=== PATIENT | female | born 1980 | race Caucasian/White ===

== ENCOUNTER 2020-03-29 13:52 | Outpatient (CLI) | payer OTHER, SELFPAY ==
[2020-03-29 15:11] LABS: Alanine Aminotransferase 34 U/L (4-35); Albumin Level 4.2 g/dL (3.5-5.1); Alkaline Phosphatase 66 U/L (38-126); Anion Gap 10 mmol/L (8-16); Aspartate Amino Transferase 44 U/L (14-36); Bilirubin,Total 0.5 mg/dL (0.2-1.3); Blood Urea Nitrogen 10 mg/dL (7-17); Calcium 9.4 mg/dL (8.4-10.2); Carbon Dioxide 26 mmol/L (22-30); Chloride 103 mmol/L (98-107); Cholesterol 194 mg/dL (0-200); Estimated Glomerular Filt Rate > 60; Glucose 85 mg/dL (65-105); HDL Direct 61 mg/dL; Potassium 3.9 mmol/L (3.4-5.0); Sodium 139 mmol/L (137-145); Triglycerides 137 mg/dL (<150)
[2020-03-29 15:22] LABS: LDL Cholesterol Direct 141 mg/dL
== END 2020-03-29 13:53 | disposition home or self-care (01) ==
PROVIDERS: PCP Internal Medicine; Visit Provider Student in an Organized Health Care Education/Training Program
DX: Z00.00 Encounter for general adult medical examination without abnormal findings (principal)
CPT/HCPCS: 36415; 80053; 80061

== ENCOUNTER 2020-05-18 10:57 | Outpatient (CLI) | payer OTHER, SELFPAY ==
[2020-05-18 11:27] LABS: CRP 0.8 mg/dL (<1.0)
[2020-05-18 13:25] LABS: Erythrocyte Sedimentation Rate 17 mm/hr (0-20)
[2020-05-21 09:01] LABS: Tissue Transglutaminase IgG Ab 3 U/mL (<6)
[2020-05-23 18:05] LABS: Tissue Transglutaminase IgA Ab 1 U/mL (<4)
== END 2020-05-18 10:58 | disposition home or self-care (01) ==
LOC: ANHLAB 10:59
PROVIDERS: PCP Internal Medicine; Visit Provider Internal Medicine Gastroenterology
DX: R19.7 Diarrhea, unspecified (principal)
CPT/HCPCS: 36415; 83516; 85652; 86140

== ENCOUNTER → 2020-06-20 00:27 | Outpatient (CLI) | payer OTHER, SELFPAY ==
[2020-06-20 21:18] LABS: SARS-CoV-2 RNA PCR Negative
== END ==
PROVIDERS: PCP Internal Medicine; Visit Provider Internal Medicine Gastroenterology
DX: Z01.812 Encounter for preprocedural laboratory examination (principal); Z20.822 Contact with and (suspected) exposure to COVID-19
CPT/HCPCS: C9803; U0003; U0005

== ENCOUNTER 2020-06-23 00:11 | Day surgery (SDC) | payer OTHER, SELFPAY ==
[2020-06-01 10:22] VITALS: BMI 26.7
[2020-06-23 06:18] VITALS: BP 141/92; PULSE 103; RESP 16; TEMP 36.1; O2SAT 100
[2020-06-23] MEDS: LACTATED RINGERS 1,000 ML 150 ML IV CONT (06:30)
--- NOTE | 2020-06-23 07:01 | WPDANESEPPF ---
Anes - Initial Pre Proc Eval Procedure: Operation Date: 06/23/20 07:30 Proposed Procedures p Colonoscopy - Dar Allan MD Date/Time: 06/23/20 07:01 Surgeon: Dar Allan MD Pre Op Diagnosis: Diarrhea Patient Data Age: 40 Gender: F Height: 5 ft 5 in Weight: 68.6 kg Last Vital Signs Temp 36.1 C L 06/23/20 06:18 Pulse 103 H 06/23/20 06:18 Resp 16 06/23/20 06:18 BP 141/92 H 06/23/20 06:18 Pulse Ox 100 06/23/20 06:18 Allergies Allergy/AdvReac Type Severity Reaction Status Date / Time Contrast Media Allergy Unknown NECK/FACIAL Uncoded 06/23/20 06:16 SWELLING WITH EYE SWELLING CLOSED Home Medications Medication Instructions Recorded Confirmed Type lisinopril 10 mg tablet 10 mg PO DAILY 05/18/20 06/23/20 History loperamide 2 mg capsule 2 mg PO Q4H PRN 05/18/20 06/23/20 History norethindrone 1 mg-ethin. 1 cap PO DAILY 05/18/20 06/23/20 History estradiol 20 mcg (24)-iron 75 mg (4) capsule sodium,potassium,mag sulfates 17.5 See Rx Instructions PO .COMPLEX 05/18/20 06/23/20 Rx gram-3.13 gram-1.6 gram oral soln #354 ml cholestyramine (with sugar) 4 gram 4 g PO BID #378 g 06/08/20 06/23/20 Rx oral powder Patient hx anesthesia problems: none Family hx anesthesia problems: none PMFSH Past Medical History Medical History (Updated 06/23/20 @ 07:01 by Alexis Shaffer MD) Bloating Diarrhea HTN (hypertension) Rectal urgency Surgical History Surgical History H/O tubal ligation History of esophagogastroduodenoscopy (EGD) Family History Family History Mother Hypertension Social History Social History Smoking packs per day: 0.5 Smoking cigarettes per day: 10.0 Years smoked: 9 Smoking pack-years: 4.50 Smoking status: Former smoker Tobacco type: cigarettes Second hand tobacco smoke exposure: No Smoking end date: 05/21/11 Alcohol intake: current Alcohol use details: 2 Substance use: never Substance use type: does not use Living arrangements: with family Gender identity (if verbalized by the patient): Female Spiritual care concerns: No Anes - Eval Final PreProcedure Day of Procedure 06/23/20 07:01 Patient weight: normal Heart: regular rate and rhythm Lungs: clear to auscultation Airway: Mallampati scale class II Neurological: alert and oriented Last oral intake: >/= 8 hours ASA classification: II Emergent: no Anesthetic plan: proceed Anesthesia type and monitoring: general GIVS and standard monitoring Informed Consent: The patient's anesthetic plan and its attendant risks and benefits were discussed with the patient/family/POA. Questions were solicited and answers provided to the satisfaction of the patient/family/POA.
--- NOTE | 2020-06-23 07:54 | PM.HPGS ---
History of Present Illness History of Present Illness Consent: Risks, benefits, and alternatives have been discussed and questions answered. Patient agrees to proceed with procedure. Chief complaint: Diarrhea Narrative: Kerry Medel is a 40 year old female with diarrhea but much better after I started her on questran, serology for celiac was negative Review of Systems Constitutional: Constitutional: Denies headache(s) and Denies weakness Eyes: Eyes: Denies blurry vision ENT: Reports Normal hearing present, Denies headache(s) and Denies neck pain Cardiovascular: Cardiovascular: Denies chest pain and Denies dyspnea Respiratory: Respiratory: Denies dyspnea Gastrointestinal: Gastrointestinal: Reports no additional gastrointestinal complaints Genitourinary: Genitourinary: Denies dysuria Musculoskeletal: Musculoskeletal: Denies neck pain Integumentary/Breasts: Skin/Breast: Denies dry skin Neurologic: Reports Normal hearing present, Denies headache(s) and Denies weakness Psychiatric: Psychiatric: Denies anxiety Endocrine: Endocrine: Denies change in body appearance Hematologic/Lymphatic: Hematologic/Lymphatic: Denies easy bleeding Allergic/Immunologic: Allergic/Immunologic: Denies urticaria PMF Past Medical History Medical History (Updated 06/23/20 @ 07:01 by Alexis Shaffer MD) Bloating Diarrhea HTN (hypertension) Rectal urgency Surgical History Surgical History H/O tubal ligation History of esophagogastroduodenoscopy (EGD) Family History Family History Mother Hypertension Social History Social History Smoking packs per day: 0.5 Smoking cigarettes per day: 10.0 Years smoked: 9 Smoking pack-years: 4.50 Smoking status: Former smoker Tobacco type: cigarettes Second hand tobacco smoke exposure: No Smoking end date: 05/21/11 Alcohol intake: current Alcohol use details: 2 Substance use: never Substance use type: does not use Living arrangements: with family Gender identity (if verbalized by the patient): Female Spiritual care concerns: No Meds Home Medications and Allergies Home Medications Medication Instructions Recorded Confirmed Type lisinopril 10 mg tablet 10 mg PO DAILY 05/18/20 06/23/20 History loperamide 2 mg capsule 2 mg PO Q4H PRN 05/18/20 06/23/20 History norethindrone 1 mg-ethin. 1 cap PO DAILY 05/18/20 06/23/20 History estradiol 20 mcg (24)-iron 75 mg (4) capsule sodium,potassium,mag sulfates 17.5 See Rx Instructions PO .COMPLEX 05/18/20 06/23/20 Rx gram-3.13 gram-1.6 gram oral soln #354 ml cholestyramine (with sugar) 4 gram 4 g PO BID #378 g 06/08/20 06/23/20 Rx oral powder Allergies Allergy/AdvReac Type Severity Reaction Status Date / Time Contrast Media Allergy Unknown NECK/FACIAL Uncoded 06/23/20 06:16 SWELLING WITH EYE SWELLING CLOSED Vital Signs Vital Signs - 24 hr 06/23/20 06:18 Temperature 97.0 F L Pulse Rate 103 H Respiratory Rate 16 Blood Pressure 141/92 H Pulse Oximetry 100 Exam Const: General: comfortable and no acute distress HENMT: General nose exam: Normal nares present Eyes: General: appearance normal, both eyes and all related structures Neck: Neck: no JVD Resp: Auscultation: clear to auscultation bilaterally Cardio: Rate: regular rate Rhythm: regular rhythm GI: Inspection: non-distended GI Palp: Yes Soft to palpation Skin: General skin exam: normal color Neuro: General: gait normal Speech: normal speech Extrem: General: normal to inspection Psych: Mental Status: mental status grossly normal Assessment and Plan Assessment and plan (1) Diarrhea: Code(s): R19.7 - Diarrhea, unspecified Status: Acute Assessment and Plan: colonoscopy with random bx
[2020-06-23 08:17] VITALS: BP 112/78; PULSE 91; RESP 18; O2SAT 100
[2020-06-23 08:28] VITALS: BP 117/78; PULSE 85; RESP 20; O2SAT 100
[2020-06-23 08:38] VITALS: BP 121/82; PULSE 82; RESP 18; O2SAT 100
== END 2020-06-23 08:49 | disposition home or self-care (01) ==
PROVIDERS: PCP Internal Medicine; Visit Provider Internal Medicine Gastroenterology
PROC: 0DJD8ZZ Inspection of Lower Intestinal Tract, Via Natural or Artificial Opening Endoscopic (ICD-10-PCS; CPT 45378; principal; 2020-06-23 07:30)
DX: R19.7 Diarrhea, unspecified (principal); K63.5 Polyp of colon; R15.2 Fecal urgency; R14.0 Abdominal distension (gaseous); K57.30 Diverticulosis of large intestine without perforation or abscess without bleeding; K64.8 Other hemorrhoids; I10 Essential (primary) hypertension; Z87.891 Personal history of nicotine dependence
CPT/HCPCS: 45385; 45380; 88305; J2704; J7120

== ENCOUNTER 2020-08-22 06:50 | Outpatient (CLI) | payer OTHER, SELFPAY ==
[2020-08-22 07:35] LABS: Hematocrit 38.7 % (37.0-47.0); Hemoglobin 12.8 g/dL (12.0-15.0); Mean Corpuscular HGB Conc 33.1 g/dl (32-36); Mean Corpuscular Hemoglobin 32.1 pg (26-34); Mean Platelet Volume 9.3 fl (7.4-10.4); Platelet Count Result 292 k/mm3 (150-375); Red Blood Count 3.99 M/mm3 (4.2-5.4); Red Cell Distribution Width 13.2 % (11.5-14.5); White Blood Count 5.5 K/mm3 (4.5-10.0)
[2020-08-22 07:46] LABS: Alanine Aminotransferase 29 U/L (4-35); Albumin Level 4.3 g/dL (3.5-5.1); Alkaline Phosphatase 65 U/L (38-126); Anion Gap 10 mmol/L (8-16); Aspartate Amino Transferase 39 U/L (14-36); Bilirubin,Total 0.4 mg/dL (0.2-1.3); Blood Urea Nitrogen 11 mg/dL (7-17); Calcium 9.1 mg/dL (8.4-10.2); Carbon Dioxide 28 mmol/L (22-30); Chloride 105 mmol/L (98-107); Estimated Glomerular Filt Rate > 60; Glucose 87 mg/dL (65-105); Potassium 3.9 mmol/L (3.4-5.0); Sodium 143 mmol/L (137-145)
[2020-08-22 08:15] LABS: Thyroid Stimulating Hormone 0.874 uIU/mL (0.465-4.680)
[2020-08-22 08:50] LABS: Folic Acid 9.1 ng/mL (2.76->20)
[2020-08-22 09:26] LABS: Vitamin D 25 Hydroxy 30.2 ng/mL
[2020-08-25 09:17] LABS: Vitamin B6 14.5 ng/mL (2.1-21.7)
[2020-08-25 11:44] LABS: Vitamin B1 13 nmol/L (8-30)
== END 2020-08-22 06:51 | disposition home or self-care (01) ==
PROVIDERS: PCP Internal Medicine; Visit Provider Physician Assistant Surgical
DX: G62.9 Polyneuropathy, unspecified (principal)
CPT/HCPCS: 36415; 80053; 82306; 82607; 82746; 84207; 84425; 84443; 85027

== ENCOUNTER 2020-09-12 07:06 | Outpatient (CLI) | payer OTHER, SELFPAY ==
[2020-09-12 07:27] LABS: Basophils Percent Auto 0.5 % (0.2-1.2); Eosinophils Absolute Auto 0.2 K/mm3 (0-0.3); Hematocrit 40.9 % (37.0-47.0); Hemoglobin 13.4 g/dL (12.0-15.0); Immature Granulocyte Absolute 0.04 K/mm3 (0.00-0.031); Immature Granulocyte Percent A 0.6 % (0-0.5); Lymphocytes Absolute Auto 1.99 K/mm3 (0.9-3.2); Lymphocytes Percent Auto 30.1 % (18.3-44.2); Mean Corpuscular HGB Conc 32.8 g/dl (32-36); Mean Corpuscular Hemoglobin 31.5 pg (26-34); Mean Platelet Volume 9.5 fl (7.4-10.4); Monocytes Absolute Auto 0.5 K/mm3 (0.1-0.6); Neutrophils Absolute Auto 3.9 K/mm3 (1.3-6.7); Neutrophils Percent Auto 58.8 % (45.5-73.1); Platelet Count Result 266 k/mm3 (150-375); Red Blood Count 4.26 M/mm3 (4.2-5.4); Red Cell Distribution Width 12.8 % (11.5-14.5); White Blood Count 6.6 K/mm3 (4.5-10.0)
== END 2020-09-12 07:07 | disposition home or self-care (01) ==
PROVIDERS: PCP Internal Medicine; Visit Provider Physician Assistant Surgical
DX: G62.9 Polyneuropathy, unspecified (principal)
CPT/HCPCS: 36415; 82306; 82607; 85025

== ENCOUNTER 2021-01-18 08:20 | Outpatient (CLI) | payer OTHER, SELFPAY ==
--- NOTE | 2021-01-18 08:30 | ECG_ITS ---
Measurements Intervals [place] Rate: 70 P: 61 OK: 145 QRS: -14 QRSD: 74 T: 0 QT: 380 QTc: 410 Interpretive Statements SINUS RHYTHM WITH SINUS ARRHYTHMIA POSSIBLE LEFT ATRIAL ENLARGEMENT LOW QRS VOLTAGE IN PRECORDIAL LEADS BORDERLINE T WAVE ABNORMALITY- INFERIOR LEADS BASELINE ARTIFACT- I, II, III, AVR, AVL, AVF BORDERLINE ECG Electronically Signed On 01-18-2021 9:06:28 CDT by Emir Kelsey D.O.
== END 2021-01-18 08:21 | disposition home or self-care (01) ==
LOC: ANHSURGERY 08:24
PROVIDERS: PCP Internal Medicine; Visit Provider Orthopaedic Surgery
DX: Z01.818 Encounter for other preprocedural examination (principal); I10 Essential (primary) hypertension; R94.31 Abnormal electrocardiogram [ECG] [EKG]
CPT/HCPCS: 93005

== ENCOUNTER 2021-01-25 00:12 | Day surgery (SDC) | payer OTHER, SELFPAY ==
[2021-01-16 14:23] VITALS: BMI 25.0
--- NOTE | 2021-01-24 12:15 | P.PNAN_ITS ---
Anes - Initial Pre Proc Eval Procedure: Operation Date: 01/25/21 09:15 Proposed Procedures p Right Tarsal Tunnel Release - Torrey Bazan MD Date/Time: 01/24/21 12:15 Surgeon: Torrey Bazan MD Pre Op Diagnosis: Right Tarsal Tunnel Syndrome Patient Data Age: 40 Gender: F Height: 1.65 m Weight: 68.2 kg Allergies Allergy/AdvReac Type Severity Reaction Status Date / Time Contrast Media Allergy Intermediate NECK/FACIAL Uncoded 01/25/21 07:25 SWELLING WITH EYE SWELLING CLOSED Home Medications Medication Instructions Recorded Confirmed Type lisinopril 10 mg tablet 10 mg PO DAILY 05/18/20 01/25/21 History norethindrone 1 mg-ethin. 1 cap PO DAILY 05/18/20 01/25/21 History estradiol 20 mcg (24)-iron 75 mg (4) capsule cholestyramine (with sugar) 4 gram 4 g PO BID #378 g 09/28/20 01/25/21 Rx oral powder Patient hx anesthesia problems: none Family hx anesthesia problems: none PMFSH Past Medical History Medical History (Updated 01/24/21 @ 16:53 by Torrey Bazan MD) Bilateral ankle pain Bloating Diarrhea HTN (hypertension) Interstitial cystitis Rectal urgency Tarsal tunnel syndrome of right side Tarsal tunnel syndrome, left lower limb Surgical History Surgical History H/O tubal ligation History of esophagogastroduodenoscopy (EGD) Family History Family History Mother Hypertension Social History Social History Smoking packs per day: 0.5 Smoking cigarettes per day: 10.0 Years smoked: 9 Smoking pack-years: 4.50 Smoking status: Former smoker Tobacco type: cigarettes Second hand tobacco smoke exposure: No Smoking end date: 01/16/10 Alcohol intake: current Alcohol use details: 2 Substance use: never Substance use type: does not use Living arrangements: with family Gender identity (if verbalized by the patient): Female Sexual Orientation (if Verbalized by the Patient): Straight or Heterosexual Spiritual care concerns: No Anes - Eval Final PreProcedure Day of Procedure 01/24/21 12:15 Patient weight: normal Heart: regular rate and rhythm Lungs: clear to auscultation and normal air movement Airway: Mallampati scale class II Neurological: alert and oriented Last oral intake: >/= 8 hours ASA classification: II Emergent: no Anesthetic plan: proceed Anesthesia type and monitoring: general GIVS and LMA Informed Consent: The patient's anesthetic plan and its attendant risks and benefits were discussed with the patient/family/POA. Questions were solicited an d answers provided to the satisfaction of the patient/family/POA.
--- NOTE | 2021-01-24 16:50 | PM.IMHP ---
H&P: HPI History of Present Illness Date/Time: 01/24/21 16:50 Chief Complaint: Right foot and ankle pain, numbness and tingling Narrative: chief complaint bilateral foot pain, burning and tingling. right side worse than the left. History, physical exam and radiographs reviewed with the patient. Previous EMG nerve conduction study reviewed which shows severe tarsal tunnel tibial nerve compression bilaterally. Discussed the condition, nature, etiology and course of natural history with the patient. Treatment options including surgical and nonoperative treatment were reviewed. Risks and benefits of each as well as alternatives reviewed. The patient's questions were answered. Conservative treatment ice, compression and elevation Not given any relief.. Patient not getting any benefit with gabapentin/ cymbalta. Failed activity modification, inserts and shoe wear. Discussed surgical treatment for failed non operative treatment. Review of Systems Constitutional: Constitutional: Denies headache(s) and Denies weakness Eyes: Eyes: Denies blurry vision ENT: Reports Normal hearing present, Denies headache(s) and Denies neck pain Cardiovascular: Cardiovascular: Denies chest pain and Denies dyspnea Respiratory: Respiratory: Denies dyspnea Gastrointestinal: Gastrointestinal: Reports no additional gastrointestinal complaints Genitourinary: Genitourinary: Denies dysuria Musculoskeletal: Musculoskeletal: Denies neck pain Integumentary/Breasts: Skin/Breast: Denies dry skin Neurologic: Reports Normal hearing present, Denies headache(s) and Denies weakness Psychiatric: Psychiatric: Denies anxiety Endocrine: Endocrine: Denies change in body appearance Hematologic/Lymphatic: Hematologic/Lymphatic: Denies easy bleeding Allergic/Immunologic: Allergic/Immunologic: Denies urticaria PMFSH Past Medical History Medical History (Updated 01/24/21 @ 16:53 by Torrey Bazan MD) Bilateral ankle pain Bloating Diarrhea HTN (hypertension) Interstitial cystitis Rectal urgency Tarsal tunnel syndrome of right side Tarsal tunnel syndrome, left lower limb Surgical History Surgical History H/O tubal ligation History of esophagogastroduodenoscopy (EGD) Family History Family History Mother Hypertension Social History Social History Smoking packs per day: 0.5 Smoking cigarettes per day: 10.0 Years smoked: 9 Smoking pack-years: 4.50 Smoking status: Former smoker Tobacco type: cigarettes Second hand tobacco smoke exposure: No Smoking end date: 01/16/10 Alcohol intake: current Alcohol use details: 2 Substance use: never Substance use type: does not use Gender identity (if verbalized by the patient): Female Sexual Orientation (if Verbalized by the Patient): Straight or Heterosexual Spiritual care concerns: No Meds Home Medications and Allergies Home Medications Medication Instructions Recorded Confirmed Type lisinopril 10 mg tablet 10 mg PO DAILY 05/18/20 01/16/21 History norethindrone 1 mg-ethin. 1 cap PO DAILY 05/18/20 01/16/21 History estradiol 20 mcg (24)-iron 75 mg (4) capsule cholestyramine (with sugar) 4 gram 4 g PO BID #378 g 09/28/20 01/16/21 Rx oral powder Allergies Allergy/AdvReac Type Severity Reaction Status Date / Time Contrast Media Allergy Intermediate NECK/FACIAL Uncoded 01/16/21 14:22 SWELLING WITH EYE SWELLING CLOSED Exam Const: General: healthy appearing; No in distress or confusion Orientation/consciousness: oriented to person, oriented to place, oriented to time and No confusion HENMT: Head: normal to inspection, normocephalic and atraumatic Eyes: Conjunctivae: conjunctivae normal Sclera: sclerae normal Neck: Neck: supple and nontender Resp: Effort &
[2021-01-25] VITALS (8 sets, daily range): BP systolic 116–151; BP diastolic 75–96; PULSE 78–93; RESP 16–17; TEMP 36.3–37.3; O2SAT 97–100; BMI 25.0
--- NOTE | 2021-01-25 06:54 | WPDHPUPDATE1 ---
History and Physical Update Update Date/Time: 01/25/21 06:54 History and Physical has been reviewed, including an updated exam of the patient. There are NO changes in the patient's condition. Risks, benefits, and alternatives have been discussed and questions answered. Patient agrees to proceed with procedure.
[2021-01-25] MEDS: LACTATED RINGERS 1,000 ML 30 ML IV CONT ×2 (07:39→10:38)
[2021-01-25] MEDS: KETOROLAC 15 MG/ML VIAL (*BKC) IV PUSH (07:39)
[2021-01-25] MEDS: ACETAMINOPHEN 500 MG TABLET 1000 MG PO (07:39)
--- NOTE | 2021-01-25 09:30 | W.PM.PROC2 ---
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 Electrodiagnostic studies consistent with severe tarsal tunnel syndrome bilaterally. Patient has failed conservative treatment. Presents for operative release of the right tarsal tunnel. Description of Procedure Informed consent given by the patient and operative extremity marked in preoperative holding area. Patient received intravenous antibiotics. Taken to the operating room and underwent general anesthesia by anesthesia team. Positioned supine on operating room table. Time-out performed confirming patient, site of surgery, plan. Right lower extremity prepped and draped in usual sterile surgical fashion using ChloraPrep skin solution. No tourniquet utilized. Local anesthetic with 0.25% Marcaine and epinephrine at the incision site. Fifteen blade knife used to make oblique incision over the tarsal tunnel of the medial aspect right ankle. Hemostasis controlled with electrocautery and bipolar cautery. Dissection carried down to the fascia which was incised in line with skin incision and retractors placed. Careful technique utilized with [place] elevator deep to the transverse tarsal ligament and ligament divided in line with skin incision. Dissection from proximal to distal with protection of the neurovascular bundle. Tightness of the retinaculum noted. Medial branch plantar nerve identified and released under direct visualization into the tarsal canal. Lateral branch identified and released under the abductor musculature. No other areas of compression identified. Bleeding points controlled with bipolar cautery. Wound thoroughly irrigated with antibiotic solution. Subcutaneous tissue repaired with 2 0 Vicryl and 3 0 Monocryl interrupted suture. Skin repaired with 4 0 nylon running suture. Bulky dressing and splint applied. Patient awoken from anesthesia, extubated, taken to recovery in stable condition. All sponge, needle, instrument counts correct at end of case. Implants None Estimated Blood Loss 5 Tourniquet Time 0 Drains No Packing No Pathology none sent Complications None Condition stable Disposition PACU
[2021-01-25] MEDS: ceFAZolin 2 GM/D5W 50 ML 2 GM/50 ML BAG IVPB (09:31)
[2021-01-25] MEDS: BUPIVACAINE/EPINEPHRINE 0.25% 50 ML VIAL INFILTRATE (10:28)
[2021-01-25] MEDS: BUPIVACAINE HCL 0.5% PF 30 ML VIAL INFILTRATE (10:28)
== END 2021-01-25 12:11 | disposition home or self-care (01) ==
PROVIDERS: PCP Internal Medicine; Visit Provider Orthopaedic Surgery
PROC: (CPT 28035; principal; 2021-01-25 09:15)
DX: G57.51 Tarsal tunnel syndrome, right lower limb (principal); I10 Essential (primary) hypertension; Z87.891 Personal history of nicotine dependence
CPT/HCPCS: 28035; A9270; J0690; J1100; J1170; J1200; J1885; J2250; J2405; J2704; J3010; J7120

== ENCOUNTER 2021-02-26 08:09 | Outpatient (RCR) | payer OTHER, SELFPAY ==
--- NOTE | 2021-02-26 08:59 | PTOPEVAL ---
Thank you for referring Kerry Medel to [facility].? The patient is scheduled to be seen for therapy? ____x/week for ___ weeks. Please review, sign, date and return this plan of care BRISEIDA. I agree with and certify that the following plan of care is medically necessary. Referring Physician Date Admitting Provider: Attending Provider: Torrye Bazan MD Referring Provider: *PT Outpatient Evaluation Start: 02/26/21 07:58 Freq: Status: Active Protocol: Document 02/26/21 07:58 ACR (Rec: 02/26/21 08:59 ACR [id number]) Therapy Assessment Status Assessment Status Assessment Status Evaluation Outpatient Past Medical History Neurological History Hx Neurological Disorders No Significant History Cardiovascular History Hx Hypertension Yes Respiratory History Hx Respiratory Disorders No Significant History Gastrointestinal History Hx Gastrointestinal Disorders No Significant History Genitourinary History Hx Other Genitourinary Disorders Yes: Bladder stimulator Musculoskeletal History Hx Musculoskeletal Disorders No Significant History Hematological History Hx Hematological Disorders No Significant History Endocrine History Hx Endocrine Disorders No Significant History HEENT History Hx HEENT Disorders No Significant History Integumentary History Hx Skin Disorders No Significant History Reproductive History Hx Reproductive Disorders No Significant History Psychosocial History Hx Psychiatric Disorders No Significant History Pain History History of Any Previous or Ongoing No Significant History Instance of Pain Anesthesia History Hx Anesthesia Reactions No Significant History Evaluation Information Problem Diagnosis R tarsal tunnel release Onset 01/25/21 Subjective Information Patient states that she got a Query Text:As Reported By Patient/ tarsal tunnel release was in a Family splint, then a hard cast where she was NWB, then got the walking boot and is supposed to be WBAT but the pain is too intense. Patient states that the heel feels like knives and pins and needles through her whole foot . Patient states that any weight bearing through her whole foot especially on the heel. The patient states she is suppose to get her other foot done on March 08, but needs to be full weight bear
--- NOTE | 2021-03-13 09:02 | PTOPEVAL ---
Thank you for referring Kerry Medel to [facility].? The patient is scheduled to be seen for therapy? ____x/week for ___ weeks. Please review, sign, date and return this plan of care BRISEIDA. I agree with and certify that the following plan of care is medically necessary. Referring Physician Date Admitting Provider: Attending Provider: Torrey Bazan MD Referring Provider: *PT Outpatient Evaluation Start: 02/26/21 07:58 Freq: Status: Active Protocol: Document 03/13/21 07:54 ACR (Rec: 03/13/21 08:59 ACR [id number]) Therapy Assessment Status Assessment Status Assessment Status Discharge Outpatient Past Medical History Neurological History Hx Neurological Disorders No Significant History Cardiovascular History Hx Hypertension Yes Respiratory History Hx Respiratory Disorders No Significant History Gastrointestinal History Hx Gastrointestinal Disorders No Significant History Genitourinary History Hx Other Genitourinary Disorders Yes: Bladder stimulator Musculoskeletal History Hx Other Musculoskeletal Disorders Yes: 01/2021 right tarsal tunnel release Hematological History Hx Hematological Disorders No Significant History Endocrine History Hx Endocrine Disorders No Significant History HEENT History Hx HEENT Disorders No Significant History Integumentary History Hx Skin Disorders No Significant History Reproductive History Hx Reproductive Disorders No Significant History Psychosocial History Hx Psychiatric Disorders No Significant History Pain History History of Any Previous or Ongoing No Significant History Instance of Pain Anesthesia History Hx Anesthesia Reactions No Significant History Evaluation Information Problem Diagnosis R tarsal tunnel release Onset 01/25/21 Subjective Information Patient states that since Query Text:As Reported By Patient/ beginning therapy she is doing Family well. She is able to wear her shoe at all times and her pain is a little high, but she is still doing it. She states she is getting her other foot done on 03/15/21. Pain Assessment Timing of Pain Assessment Timing of Pain Assessment Assessment Pain Scale Pain Scale Used Numeric (1 - 10) Self Report Pain Assessment Right Foot/Feet Reported Pain Level 4 Greatest Pain Intensity 4 Pain Score Pain Score 4: Self Report Interventions Used Interventions Used By Clinicians Activity or ADL's,Electrical Stimulation,Exercise,Heat Lower Extremity Range of Motion Ankle/Foot Range of Motion
== END 2021-03-13 09:20 | disposition home or self-care (01) ==
LOC: CHSPT 08:09
PROVIDERS: PCP Internal Medicine; Visit Provider Orthopaedic Surgery
DX: M79.672 Pain in left foot (principal); G57.52 Tarsal tunnel syndrome, left lower limb
CPT/HCPCS: 97014; 97110; 97116; 97140; 97161; G0283

== ENCOUNTER 2021-03-15 02:11 | Day surgery (SDC) | payer OTHER, SELFPAY ==
[2021-03-07 14:14] VITALS: BMI 25.0
--- NOTE | 2021-03-07 14:19 | PC.NURSE ---
Report to the Outpatient Waiting Room, entrance under the green pavilion located off [facility], at time __0930 on date _03/15/21 . OR Time: ___1129 . - You and your visitor will be asked a series of questions to screen for COVID 19 for your protection. - A mask is required within the hospital. - Only one visitor is allowed at this time. Patient visitors will be guided where to wait when not with patient. Preoperative COVID Testing Requirements: No COVID Test needed if: (proof is required; if not received patient will have Rapid Test prior to entry) - Patient has received COVID Vaccine at least 14 days prior to procedure date or - Patient has positive COVID test result within last 90 days of surgery date. COVID Test needed if above criteria is not met If not COVID vaccinated a COVID test must be conducted within 72 hours of surgery and patient is asked to isolate self from time of testing until procedure. You will go to the [email or web address] Testing Site for your COVID testing. The [facility] site is located at the corner of [address] [facility]. You will only be called if COVID results are positive and your surgeon may reschedule your elective surgery date. Patients may have clear liquids (water, carbonated beverages, clear teas, apple juice) until 3 hours prior to surgery with a maximum of 20 ounces. - No food from midnight until time of surgery - Infants may have breast milk until 4 hours before surgery, infant formula 6 hours prior to surgery. - Children will be allowed to drink immediately following surgery. If applicable, please bring a bottle or sippy cup to assist with drinking. Juice, water, soda, and popsicles are readily available. For infants on formula, please bring formula the day of surgery. Pacifiers are allowed. Take the following medications with a SIP of water the morning of surgery: Medications to discontinue per physician Date to take last dose Please no make-up, nail telugu, hairspray, perfume, deodorant, or body powder the day of surgery. No jewelry (including any body piercings) or valuables the day of surgery, leave them at home. Please take a shower or bath the night before, or the morning of, surgery with an antibacterial soap. Wear comfortable, loose fitting clothing. Children are encouraged to wear pajamas. - Jewelry must be removed prior to entering the operating room. Rings and piercings that are not removed may be cut off. - The hospital will not accept responsibility for valuables. - Please leave all valuables, including medications, at home the day of surgery. If you are going home after surgery, a licensed limo driver must drive you home. - NO public transportation without another adult. - We recommend that an adult stay with you for 24 hours following discharge. - We also recommend that you do not drive, make important decision, drink alcoholic beverages, or take any drugs that were not prescribed by your health care provider for at least 24 hours after your discharge time. For Pediatric surgeries, we recommend two adults accompany the child home (only one inside the building at this time). Follow any additional instructions given to you from your surgeon. Telephone instructions given to ___sundeep scanlon and asked if any additional questions and then verbalized understanding. Patient advised to call surgeon office or pre surgery nurse liaison [phone] if any additional questions.
[2021-03-15] VITALS (9 sets, daily range): BP systolic 106–142; BP diastolic 80–91; PULSE 70–100; RESP 14–18; TEMP 36.7–36.8; O2SAT 97–100; BMI 24.3
--- NOTE | 2021-03-15 08:46 | WPDHPUPDATE1 ---
History and Physical Update Update Date/Time: 03/15/21 08:46 History and Physical has been reviewed, including an updated exam of the patient. There are NO changes in the patient's condition. Risks, benefits, and alternatives have been discussed and questions answered. Patient agrees to proceed with procedure.
--- NOTE | 2021-03-15 10:17 | WPDANESEPPF ---
Anes - Initial Pre Proc Eval Procedure: Operation Date: 03/15/21 11:30 Proposed Procedures p Left Tarsal Tunnel Release - Torrey Bazan MD Date/Time: 03/15/21 10:17 Surgeon: Torrey Bazan MD Pre Op Diagnosis: left tarsal tunnel syndrome Patient Data Age: 40 Gender: F Height: 1.65 m Weight: 68.18 kg Allergies Allergy/AdvReac Type Severity Reaction Status Date / Time Contrast Media Allergy Severe NECK/FACIAL Uncoded 03/07/21 13:59 SWELLING WITH EYE SWELLING CLOSED Home Medications Medication Instructions Recorded Confirmed Type lisinopril 10 mg tablet 10 mg PO DAILY 05/18/20 03/07/21 History norethindrone 1 mg-ethin. 1 cap PO DAILY 05/18/20 03/07/21 History estradiol 20 mcg (24)-iron 75 mg (4) capsule cholestyramine (with sugar) 4 gram 4 g PO BID #378 g 09/28/20 03/07/21 Rx oral powder Patient hx anesthesia problems: none Family hx anesthesia problems: none Results Review: All pre-operative results and documents have been reviewed as part of the pre-operative evaluation. [facility] Past Medical History Medical History Bilateral ankle pain Bloating Diarrhea Encounter for postoperative care HTN (hypertension) Interstitial cystitis Rectal urgency Tarsal tunnel syndrome of right side Tarsal tunnel syndrome, left lower limb Surgical History Surgical History H/O tubal ligation History of esophagogastroduodenoscopy (EGD) Family History Family History Mother Hypertension Social History Social History Smoking packs per day: 0.5 Smoking cigarettes per day: 10.0 Years smoked: 9 Smoking pack-years: 4.50 Smoking status: Former smoker Tobacco type: cigarettes Second hand tobacco smoke exposure: No Smoking end date: 05/05/09 Additional smoking assessment comments: 1/2 ppd x9 years Alcohol intake: current Drinks per week: 2 Alcohol use details: 2 glasses of wine on weekends Substance use: never Substance use type: does not use Living arrangements: with family Gender identity (if verbalized by the patient): Female Sexual Orientation (if Verbalized by the Patient): Straight or Heterosexual Spiritual care concerns: No Anes - Eval Final PreProcedure Day of Procedure 03/15/21 10:17 Patient weight: normal Heart: regular rate and rhythm Lungs: clear to auscultation Airway: Mallampati scale class II Neurological: alert and oriented Last oral intake: >/= 8 hours ASA classification: II Emergent: no Anesthetic plan: proceed Anesthesia type and monitoring: general LMA and standard monitoring Results Review: All pre-operative results and documents have been reviewed as part of the pre-operative evaluation. Informed Consent: The patient's anesthetic plan and its attendant risks and benefits were discussed with the patient/family/POA. Questions were solicited and answers provided to the satisfaction of the patient/family/POA.
[2021-03-15] MEDS: ACETAMINOPHEN 500 MG TABLET 1000 MG PO (10:31)
[2021-03-15] MEDS: LACTATED RINGERS 1,000 ML 30 ML IV CONT ×2 (10:37→12:30)
[2021-03-15] MEDS: KETOROLAC 15 MG/ML VIAL (*BKC) IV PUSH (10:37)
[2021-03-15] MEDS: ceFAZolin 2 GM/D5W 50 ML 2 GM/50 ML BAG IVPB (11:04)
--- NOTE | 2021-03-15 11:06 | W.PM.PROC2 ---
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 Patient presents for operative treatment. Findings Pressure over the tibial nerve and branches. Nerve intact. Description of Procedure What was done: Informed consent given by the patient and operative extremity marked in preoperative holding area. Patient received intravenous antibiotics. Taken to the operating room and underwent general anesthesia by anesthesia team. Positioned supine on operating room table. Time-out performed confirming patient, site of surgery, planned. Left lower extremity prepped and draped in usual sterile surgical fashion using ChloraPrep skin solution. No tourniquet utilized. Local anesthetic with 0.5% Marcaine and epinephrine at the incision site. Fifteen blade knife used to make oblique incision over the tarsal tunnel of the medial aspect left ankle. Hemostasis controlled with electrocautery and bipolar cautery. Dissection carried down to the fascia which was incised in line with skin incision and retractors placed. Careful technique utilized with [place] elevator deep to the transverse tarsal ligament and ligament divided in line with skin incision. Dissection from proximal to distal with protection of the neurovascular bundle. Tightness of the retinaculum noted. Medial branch plantar nerve identified and released under direct visualization into the tarsal canal. Lateral branch identified and released under the abductors musculature. No other areas of compression identified. Wound thoroughly irrigated. Subcutaneous tissue repaired with 3 0 Monocryl interrupted suture. Skin repaired with 4 nylon running suture. Sterile dressing placed. Bulky dressing and splint applied. Patient woken from anesthesia, extubated, taken to recovery in stable condition. All sponge, needle, instrument counts correct at end of case. Implants None Estimated Blood Loss 10 Tourniquet Time 0 Drains No Packing No Pathology none sent Complications None Condition stable Disposition PACU
== END 2021-03-15 14:00 | disposition home or self-care (01) ==
PROVIDERS: PCP Internal Medicine; Visit Provider Orthopaedic Surgery
PROC: (CPT 28035; principal; 2021-03-15 11:30)
DX: G57.52 Tarsal tunnel syndrome, left lower limb (principal); I10 Essential (primary) hypertension; Z87.891 Personal history of nicotine dependence
CPT/HCPCS: 28035; A9270; J0690; J1100; J1170; J1200; J1885; J2250; J2405; J2704; J3010; J7120

== ENCOUNTER 2021-08-14 09:21 | Outpatient (CLI) | payer OTHER, SELFPAY ==
[2021-08-14 09:57] LABS: Hematocrit 38.6 % (37.0-47.0); Hemoglobin 13.2 g/dL (12.0-15.0)
== END 2021-08-14 09:22 | disposition home or self-care (01) ==
LOC: ANHSURGERY 09:25
PROVIDERS: PCP Internal Medicine; Visit Provider Obstetrics & Gynecology
DX: N92.6 Irregular menstruation, unspecified (principal)
CPT/HCPCS: 36415; 85014; 85018

== ENCOUNTER 2021-08-17 04:14 | Day surgery (SDC) | payer OTHER, SELFPAY ==
[2021-08-13 14:00] VITALS: BMI 24.9
--- NOTE | 2021-08-13 14:18 | PC.NURSE ---
Addendum entered by Sue Nolen RN 08/14/21 08:23: DO NOT TAKE ANY MEDS MORNING OF SURGERY. PLEASE HOLD VITAMIN B STARTING 08/14/21 Original Note: Report to the Outpatient Waiting Room, entrance under the green pavilion located off [facility], at time 1130 on date08/17/21. OR Time: 1330____. - You and your visitor will be asked a series of questions to screen for COVID 19 for your protection. - A mask is required within the hospital. Preoperative COVID Testing Requirements: No COVID Test needed if: (proof is required; if not received patient will have Rapid Test prior to entry) - Patient has received COVID Vaccine at least 14 days prior to procedure date or - Patient has positive COVID test result within last 90 days of surgery date. COVID Test needed if above criteria is not met If not COVID vaccinated a COVID test must be conducted within 72 hours of surgery and patient is asked to isolate self from time of testing until procedure. You will go to the [facility] Testing Site for your COVID testing. The [facility] Testing site is located at the corner of [address] [facility]. You will only be called if COVID results are positive and your surgeon may reschedule your elective surgery date. Patients may have clear liquids (water, carbonated beverages, clear teas, apple juice) until 3 hours prior to surgery with a maximum of 20 ounces. - No food from midnight until time of surgery - Infants may have breast milk until 4 hours before surgery, formula 6 hours prior to surgery. - Children will be allowed to drink immediately following surgery. If applicable, please bring a bottle or sippy cup to assist with drinking. Juice, water, soda, and popsicles are readily available. For infants on formula, please bring formula the day of surgery. Pacifiers are allowed. Take the following medications with a SIP of water the morning of surgery: estradiol_ Medications to discontinue per physician Vitamin B(08/14/21) Lisonipril, Cholestyramine Date to take last dose 08/14/21 Please no make-up, nail turkish, hairspray, perfume, deodorant, or body powder the day of surgery. No jewelry (including any body piercings) or valuables the day of surgery, leave them at home. Please take a shower or bath the night before, or the morning of, surgery with an antibacterial soap. Wear comfortable, loose fitting clothing. Children are encouraged to wear pajamas. - Jewelry must be removed prior to entering the operating room. Rings and piercings that are not removed may be cut off. - The hospital will not accept responsibility for valuables. - Please leave all valuables, including medications, at home the day of surgery. If you are going home after surgery, a licensed lokie driver must drive you home. - NO public transportation without another adult. - We recommend that an adult stay with you for 24 hours following discharge. - We also recommend that you do not drive, make important decision, drink alcoholic beverages, or take any drugs that were not prescribed by your health care provider for at least 24 hours after your discharge time. For Pediatric surgeries, we recommend two adults accompany the child home (only one inside the building at this time). One visitor will be allowed to accompany the patient into the hospital. Patients visitor will be instructed to remain with patient at all times or leave the building. We will allow the visitor to come back to the postoperative area when patient is ready. Follow any additional instructions given to you from your surgeon. Telephone instructions given to Kerry Tijerinaand asked if any additional questions and then verbalized understanding. Patient advised to call surgeon office or pre surgery nurse liaison [phone] if any additional questions.
--- NOTE | 2021-08-14 08:00 | PM.IMHP ---
H&P: HPI History of Present Illness Date/Time: 08/14/21 08:00 Sh 41-year-old para 1 admitted for hysteroscopy dilatation curettage polypectomy and Annmarie. She is status post tubal. She has bleeding which has been refractory to medical therapy. Ultrasound shows what appears to be a small polyp. She also undergo Annmarie. Risks and benefits reviewed in full Chief Complaint: Bleeding Review of Systems Review of Systems: All systems reviewed & are unremarkable except as noted in HPI and below PMFSH Past Medical History Medical History Bilateral ankle pain Bloating Diarrhea Encounter for postoperative care HTN (hypertension) Interstitial cystitis Rectal urgency Tarsal tunnel syndrome of right side Tarsal tunnel syndrome, left lower limb Surgical History Surgical History H/O tubal ligation History of esophagogastroduodenoscopy (EGD) Family History Family History Mother Hypertension Social History Social History Smoking packs per day: 0.5 Smoking cigarettes per day: 10.0 Years smoked: 9 Smoking pack-years: 4.50 Smoking status: Former smoker Tobacco type: cigarettes Second hand tobacco smoke exposure: No Smoking end date: 05/05/09 Additional smoking assessment comments: 1/2 ppd x9 years Alcohol intake: current Drinks per week: 2 Alcohol use details: 2 glasses of wine on weekends Substance use: never Substance use type: does not use Last use: 05/05/2009 Gender identity (if verbalized by the patient): Female Sexual Orientation (if Verbalized by the Patient): Straight or Heterosexual Spiritual care concerns: No Meds Home Medications and Allergies Home Medications Medication Instructions Recorded Confirmed Type lisinopril 10 mg tablet 10 mg PO DAILY 05/18/20 08/13/21 History norethindrone 1 mg-ethin. 1 cap PO DAILY 05/18/20 08/13/21 History estradiol 20 mcg (24)-iron 75 mg (4) capsule cholestyramine (with sugar) 4 gram 4 g PO BID #378 g 05/21/21 08/13/21 Rx oral powder vitamin B complex [B 1 tablet PO DAILY 08/13/21 08/13/21 History Complex-Vitamin B12] Allergies Allergy/AdvReac Type Severity Reaction Status Date / Time Contrast Media Allergy Severe NECK/FACIAL Uncoded 06/04/21 08:55 SWELLING WITH EYE SWELLING CLOSED Exam Const: General: no acute distress Eyes: General: appearance normal, both eyes and all related structures Neck: Neck: supple and no JVD Thyroid: thyroid normal Resp: Effort & Inspection: normal respiratory effort Auscultation: clear to auscultation bilaterally Cardio: Rate: regular rate Rhythm: regular rhythm GI: Inspection: non-distended GI Palp: Yes Soft to palpation, No Tenderness to palpation present (GI) and No Guarding due to palpation present (GI) Auscultation: normal bowel sounds : External Female Exam: normal external appearance Speculum Exam - Vagina: normal appearance of the vagina Speculum Exam - Cervix: normal appearance of the cervix Bimanual exam- vagina & uterus: Uterus displaced retroverted Bimanual Exam- Adnexa, other: normal adnexae Skin: General skin exam: no rashes or lesions noted Extrem: General: normal to inspection and no edema Psych: Mental Status: mental status grossly normal Affect: normal affect Assessment and Plan Additional Plan Impression: Bleeding refractory to medical therapy with suspected polyp Plan: Hysteroscopy/dilatation curettage/Annmarie ablation and polypectomy
--- NOTE | 2021-08-17 07:12 | WPDHPUPDATE1 ---
History and Physical Update Update Date/Time: 08/17/21 07:12 History and Physical has been reviewed, including an updated exam of the patient. There are NO changes in the patient's condition. Risks, benefits, and alternatives have been discussed and questions answered. Patient agrees to proceed with procedure.
[2021-08-17] MEDS: ACETAMINOPHEN 500 MG TABLET 1000 MG PO (12:25)
--- NOTE | 2021-08-17 12:27 | WPDANESEPPF ---
Anes - Initial Pre Proc Eval Procedure: Operation Date: 08/17/21 13:30 Proposed Procedures p Hysteroscopy Dilation and Curettage Annmarie Endometrial Ablation with Polypectomy - Alexis Reyna MD Date/Time: 08/17/21 12:27 Surgeon: Alexis Reyna MD Pre Op Diagnosis: irregular bleeding , uterine polyps Patient Data Age: 41 Gender: F Height: 1.65 m Weight: 68 kg Allergies Allergy/AdvReac Type Severity Reaction Status Date / Time Contrast Media Allergy Severe NECK/FACIAL Uncoded 06/04/21 08:55 SWELLING WITH EYE SWELLING CLOSED Home Medications Medication Instructions Recorded Confirmed Type lisinopril 10 mg tablet 10 mg PO DAILY 05/18/20 08/13/21 History norethindrone 1 mg-ethin. 1 cap PO DAILY 05/18/20 08/13/21 History estradiol 20 mcg (24)-iron 75 mg (4) capsule cholestyramine (with sugar) 4 gram 4 g PO BID #378 g 05/21/21 08/13/21 Rx oral powder vitamin B complex [B 1 tablet PO DAILY 08/13/21 08/13/21 History Complex-Vitamin B12] hydrocodone-acetaminophen 1 tablet PO Q4H PRN #20 tablet 08/17/21 Rx Patient hx anesthesia problems: none Family hx anesthesia problems: none Results Review: All pre-operative results and documents have been reviewed as part of the pre-operative evaluation. [facility] Past Medical History Medical History Bilateral ankle pain Bloating Diarrhea Encounter for postoperative care HTN (hypertension) Interstitial cystitis Rectal urgency Tarsal tunnel syndrome of right side Tarsal tunnel syndrome, left lower limb Surgical History Surgical History H/O tubal ligation History of esophagogastroduodenoscopy (EGD) Family History Family History Mother Hypertension Social History Social History Smoking packs per day: 0.5 Smoking cigarettes per day: 10.0 Years smoked: 9 Smoking pack-years: 4.50 Smoking status: Former smoker Tobacco type: cigarettes Second hand tobacco smoke exposure: No Smoking end date: 05/05/09 Additional smoking assessment comments: 05/06 ppd x9 years Alcohol intake: current Drinks per week: 2 Alcohol use details: 2 glasses of wine on weekends Substance use: never Substance use type: does not use Last use: 05/05/2009 Living arrangements: with family Gender identity (if verbalized by the patient): Female Sexual Orientation (if Verbalized by the Patient): Straight or Heterosexual Spiritual care concerns: No Anes - Eval Final PreProcedure Day of Procedure 08/17/21 12:27 Patient weight: normal Heart: regular rate and rhythm Lungs: clear to auscultation Airway: Mallampati scale class II Neurological: alert and oriented Last oral intake: >/= 8 hours ASA classification: II Emergent: no Anesthetic plan: proceed Anesthesia type and monitoring: general GIVS and standard monitoring Results Review: All pre-operative results and documents have been reviewed as part of the pre-operative evaluation. Informed Consent: The patient's anesthetic plan and its attendant risks and benefits were discussed with the patient/family/POA. Questions were solicited and answers provided to the satisfaction of the patient/family/POA.
[2021-08-17 12:37] VITALS: BP 145/98; PULSE 87; RESP 14; TEMP 36.9; O2SAT 99; BMI 24.5
[2021-08-17] MEDS: LACTATED RINGERS 1,000 ML 30 ML IV CONT (12:42)
[2021-08-17] MEDS: KETOROLAC 30 MG/ML VIAL (*BKC) IV PUSH (13:13)
--- NOTE | 2021-08-17 13:34 | W.PM.PROC2 ---
Procedure Note - Detailed Date of Procedure 08/17/21 Pre-op Diagnosis irregular bleeding , uterine polyps Post-op Diagnosis Same Procedure Performed Hysteroscopy/dilatation and curettage/Annmarie endometrial ablation Surgeon Alexis Reyna MD Anesthesia MAC and Local Indications This is a 41-year-old female with excessive heavy bleeding and thickened endometrium on ultrasound Findings Uterus sounded to 9cm. Thickened endometrium was seen. No polyps were seen Description of Procedure Patient was prepped and draped in the normal sterile fashion placed in the dorsal lithotomy position. Under excellent IV sedation weighted speculum was placed in posterior fornix vagina. Anterior lip of the cervix grasped with single-tooth tenaculum and the uterus sounded to 9cm. Serial dilatation with fragmented dilators performed followed by passage of the Avril instrument. Thickened endometrial tissue was seen in each fallopian tube os could be seen. No evidence of polyps were seen. The uterus was then scraped over the entire 360? until a good grating sound was heard. The Annmarie instrument was placed in the uterus. The endometrium was burned for 120seconds. The instruments removed the of the to the instrument was replaced into the uterus and great burn was seen in photo documentation undertaken. The instruments removed and all were accounted for. All sponge, needle, instrument counts were correct. There were no immediate complications Estimated Blood Loss 5 Drains No Packing No Pathology Yes Complications No immediate complications Condition Stable Disposition PACU
[2021-08-17 13:40] VITALS: BP 167/74; PULSE 64; RESP 18; O2SAT 98
[2021-08-17] MEDS: oxyCODONE HCL (*CRX) 5 MG TAB IR PO (14:01)
[2021-08-17] MEDS: fentaNYL CITRATE INJ (*CRX) 100 MCG/2 ML VIAL 25 MCG IV PUSH (14:01)
[2021-08-17 14:10] VITALS: BP 136/84; PULSE 59; RESP 16; O2SAT 98
[2021-08-17 14:40] VITALS: BP 144/98; PULSE 75; RESP 16; O2SAT 98
== END 2021-08-17 15:00 | disposition home or self-care (01) ==
PROVIDERS: PCP Internal Medicine; Visit Provider Obstetrics & Gynecology
PROC: 0U5B8ZZ Destruction of Endometrium, Via Natural or Artificial Opening Endoscopic (ICD-10-PCS; CPT 58563; principal; 2021-08-17 13:30)
DX: N92.6 Irregular menstruation, unspecified (principal); N85.8 Other specified noninflammatory disorders of uterus; I10 Essential (primary) hypertension; Z87.891 Personal history of nicotine dependence
CPT/HCPCS: 58563; 88305; A9270; J1100; J1885; J2250; J2270; J2405; J2704; J3010; J7120

== ENCOUNTER 2021-08-23 08:33 | Outpatient (CLI) | payer OTHER, SELFPAY ==
--- NOTE | ~2021-08-23 | MM_ITS ---
EXAMINATION: MM screening [facility] BI w jayshree HISTORY: Screening mammogram TECHNIQUE: Craniocaudal and mediolateral oblique 3-D tomosynthesis images were obtained and synthetic 2-D images were generated. CAD analysis was submitted and interpreted. COMPARISON: 07/21/2018 diagnostic right mammogram BREAST PARENCHYMAL COMPOSITION: The breasts are heterogeneously dense, which may obscure small masses . FINDINGS: There is a 7.5 mass at the posterior lateral aspect of the mid left breast (CC Tomosynthesi s image 16/76). Diagnostic left mammogram and left breast ultrasound examination are recommended. Otherwise there is no evidence of suspicious mass, calcification, or architectural distortion to sugg est malignancy in either breast. There has been no suspicious interval change of the right breast. IMPRESSION: 1. 7.5 mm mass at posterior outer mid left breast 2. Diagnostic left mammogram and left breast ultrasound examination are recommended BI-RADS Category 0: Incomplete: Needs additional imaging evaluation. Reviewed, dictated and finalized at location A. IMPRESSION: 1. 7.5 mm mass at posterior outer mid left breast 2. Diagnostic left mammogram and left breast ultrasound examination are recomme nded BI-RADS Category 0: Incomplete: Needs additional imaging evaluation.
== END 2021-08-23 08:34 | disposition home or self-care (01) ==
PROVIDERS: PCP Internal Medicine; Visit Provider Obstetrics & Gynecology
DX: Z12.31 Encounter for screening mammogram for malignant neoplasm of breast (principal); R92.8 Other abnormal and inconclusive findings on diagnostic imaging of breast
CPT/HCPCS: 77063; 77067

== ENCOUNTER 2021-08-28 12:41 | Outpatient (CLI) | payer OTHER, SELFPAY ==
--- NOTE | ~2021-08-28 | MMUS_ITS ---
EXAMINATION: MM diagnostic victoriano LT w jayshree, US breast LT limited HISTORY: Follow-up left breast asymmetry TECHNIQUE: Additional 3-D tomosynthesis images of the left breast were performed and synthetic 2-D im ages were generated. CAD analysis was submitted and interpreted. High resolution limited left breast ultrasound was performed. COMPARISON: 08/23/2021 BREAST PARENCHYMAL COMPOSITION: The breasts are heterogenously dense, which may obscure small masses FINDINGS: MAMMOGRAPHIC FINDINGS: There is a radiolucent mass in the mid outer aspect of the left breast which is less apparent with sp ot compression and mediolateral views. ULTRASOUND: Limited left breast ultrasound: At 4:00, 5 cm from the nipple, there is an oval hypoechoic mass measu ring 8 x 6 x 4 mm without posterior features or internal vascularity. Parallel orientation. This may correspond to the mammographic finding. IMPRESSION: 1. Probable benign findings of the left breast. 2. Recommend 6 month follow-up diagnostic left mammogram and ultrasound BI-RADS category 3, probably benign findings. Reviewed, dictated and finalized at location A. IMPRESSION: 1. Probable benign findings of the left breast. 2. Recommend 6 month follow-up diagnostic left mammogram and ultrasound BI-RADS category 3, probably benign findings.
== END 2021-08-28 12:42 | disposition home or self-care (01) ==
LOC: ANHIMG 12:43
PROVIDERS: PCP Internal Medicine; Visit Provider Obstetrics & Gynecology
DX: R92.8 Other abnormal and inconclusive findings on diagnostic imaging of breast (principal); N63.23 Unspecified lump in the left breast, lower outer quadrant
CPT/HCPCS: 76642; 77061; 77065; G0279

== ENCOUNTER 2022-01-23 11:39 | Outpatient (CLI) | payer OTHER, SELFPAY ==
[2022-01-23 11:51] LABS: Hematocrit 36.4 % (37.0-47.0); Hemoglobin 12.3 g/dL (12.0-15.0); Mean Corpuscular HGB Conc 33.8 g/dl (32-36); Mean Corpuscular Hemoglobin 33.6 pg (26-34); Mean Corpuscular Volume 99.5 fl (80-100); Mean Platelet Volume 9.1 fl (7.4-10.4); Platelet Count Result 251 k/mm3 (150-375); Red Blood Count 3.66 M/mm3 (4.2-5.4); White Blood Count 6.4 K/mm3 (4.5-10.0)
[2022-01-23 12:14] LABS: Alanine Aminotransferase 37 U/L (6-35); Albumin Level 4.1 g/dL (3.5-5.1); Alkaline Phosphatase 92 U/L (38-126); Anion Gap 12 mmol/L (8-16); Aspartate Amino Transferase 60 U/L (14-36); Bilirubin,Total 0.6 mg/dL (0.2-1.3); Blood Urea Nitrogen 9 mg/dL (7-17); Calcium 8.8 mg/dL (8.4-10.2); Carbon Dioxide 22 mmol/L (22-30); Chloride 104 mmol/L (98-107); Estimated Glomerular Filt Rate > 60; Glucose 98 mg/dL (65-110); Potassium 3.7 mmol/L (3.4-5.0); Sodium 138 mmol/L (137-145)
[2022-01-23 12:33] LABS: Vitamin D 25 Hydroxy 33.4 ng/mL
== END 2022-01-23 11:40 | disposition home or self-care (01) ==
LOC: ANHLAB 11:40
PROVIDERS: PCP Internal Medicine; Visit Provider Obstetrics & Gynecology
DX: I10 Essential (primary) hypertension (principal); T14.8XXA Other injury of unspecified body region, initial encounter
CPT/HCPCS: 36415; 80053; 82306; 84443; 85027; 85610

== ENCOUNTER 2022-01-24 19:34 | Emergency (ER) | payer OTHER, SELFPAY ==
--- NOTE | ~2022-01-24 | CT_ITS ---
EXAMINATION: CTA chest PE protocol DATE: 01/25/2022 08:01 INDICATION: Shortness of breath TECHNIQUE: Computed tomography angiography (CTA) of the chest was performed with 100 mL Omnipaque-350 intravenous contrast timed to evaluate the pulmonary arteries. Coronal maximum intensity projection 3D-reconstructions were created by the technologist. The dose-length product (DLP) was 303.30 mGy-cm. Automated exposure control and iterative reconstruction technique were employed. COMPARISON: None. FINDINGS: The pulmonary arteries are well-opacified. No pulmonary embolism is identified. There is mi ld dependent atelectasis. The lungs are free of focal airspace opacities. No pleural effusion or pneu mothorax. No pathologically enlarged thoracic lymph nodes are identified. The heart size is normal. C ysts of the visualized liver measure up to 2.7 cm. IMPRESSION: 1. No pulmonary embolism or acute cardiopulmonary abnormality. Reviewed, dictated and finalized at location A.
--- NOTE | ~2022-01-24 | XR_ITS ---
EXAMINATION: XR chest 2V 01/24/2022 20:31 INDICATION: Left-sided chest pain PROCEDURE: 2 view chest COMPARISON: 06/2015 FINDINGS: The lungs are clear. The cardiomediastinal silhouette is within normal limits. There are no pleural effusions. There is no pneumothorax suspected. IMPRESSION: 1: NO ACUTE CARDIOPULMONARY DISEASE. Reviewed, dictated and finalized at location A.
[2022-01-24 19:39] VITALS: BP 146/98; PULSE 115; RESP 20; TEMP 36.8; O2SAT 100
--- NOTE | 2022-01-24 19:43 | ECG_ITS ---
Measurements Intervals [place] Rate: 105 P: 65 VA: 140 QRS: -13 QRSD: 78 T: 32 QT: 331 QTc: 438 Interpretive Statements SINUS TACHYCARDIA POSSIBLE LEFT ATRIAL ENLARGEMENT BORDERLINE ECG COMPARED TO ECG 01/18/2021 08:40:38 SINUS TACHYCARDIA NOW PRESENT Electronically Signed On 01-25-2022 6:32:01 CDT by Emir Kelsey D.O.
[2022-01-24 20:00] LABS: Basophils Absolute Auto 0.1 K/mm3 (0.0-0.1); Basophils Percent Auto 0.7 % (0.2-1.2); Eosinophils Absolute Auto 0.2 K/mm3 (0-0.3); Eosinophils Percent Auto 2.7 % (0-4.4); Hematocrit 40.7 % (37.0-47.0); Hemoglobin 13.5 g/dL (12.0-15.0); Immature Granulocyte Absolute 0.06 K/mm3 (0.00-0.031); Immature Granulocyte Percent A 0.7 % (0-0.5); Lymphocytes Absolute Auto 2.71 K/mm3 (0.9-3.2); Lymphocytes Percent Auto 32.2 % (18.3-44.2); Mean Corpuscular HGB Conc 33.2 g/dl (32-36); Mean Corpuscular Hemoglobin 33.4 pg (26-34); Mean Corpuscular Volume 100.7 fl (80-100); Mean Platelet Volume 9.3 fl (7.4-10.4); Monocytes Absolute Auto 0.8 K/mm3 (0.1-0.6); Monocytes Percent Auto 9.4 % (2.6-8.5); Neutrophils Absolute Auto 4.6 K/mm3 (1.3-6.7); Neutrophils Percent Auto 54.3 % (45.5-73.1); Platelet Count Result 276 k/mm3 (150-375); Red Blood Count 4.04 M/mm3 (4.2-5.4); Red Cell Distribution Width 14.3 % (11.5-14.5); White Blood Count 8.4 K/mm3 (4.5-10.0)
[2022-01-24 20:11] LABS: Prothrombin Time 12.5 Seconds (11.1-14.7)
[2022-01-24 20:12] LABS: Partial Thromboplastin Time 25.8 SECONDS (22.3-36.8)
[2022-01-24 20:36] LABS: Alanine Aminotransferase 36 U/L (6-35); Albumin Level 4.4 g/dL (3.5-5.1); Alkaline Phosphatase 96 U/L (38-126); Anion Gap 17 mmol/L (8-16); Aspartate Amino Transferase 49 U/L (14-36); Bilirubin,Total 0.5 mg/dL (0.2-1.3); Blood Urea Nitrogen 5 mg/dL (7-17); Carbon Dioxide 21 mmol/L (22-30); Chloride 110 mmol/L (98-107); Estimated Glomerular Filt Rate > 60; Glucose 104 mg/dL (65-110); Lipase 628 U/L (23-300); Potassium 3.1 mmol/L (3.4-5.0); Sodium 148 mmol/L (137-145); Troponin I < 0.012 ng/mL (0.000-0.034)
[2022-01-24 23:22] LABS: Troponin I < 0.012 ng/mL (0.000-0.034)
[2022-01-24 23:35] VITALS: PULSE 99; RESP 23; O2SAT 97
--- NOTE | 2022-01-24 23:37 | ED.GENADULT ---
HPI - General Adult General Chief complaint: Recheck/Abnormal Lab/Rx <Esthela Banegas PA-C - Last Filed: 01/25/22 04:19> Stated complaint: elevated BP, chest pain <Esthela Banegas PA-C - Last Filed: 01/25/22 04:19> Time Seen by Provider: 01/24/22 22:50 <Esthela Banegas PA-C - Last Filed: 01/25/22 04:19> Source: patient <HUDSON Dyson Last Filed: 01/25/22 04:19> Mode of arrival: ambulatory <HUDSON Dyson Last Filed: 01/25/22 04:19> Limitations: no limitations <HUDSON Dyson Last Filed: 01/25/22 04:19> History of Present Illness HPI narrative: Patient is a 41-year-old female who presents the ED with report of elevated blood pressures. Patient reports a history of hypertension for which she has been on lisinopril 10 mg daily. 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 Blood pressure was 160s over 116 at that time. She took 2 more of her 10 mg lisinopril and was also given 200 mg of labetalol. BP was still elevated. She reports having persistent chest tightness throughout today, in addition to difficulty taking deep breath. Denies pain with taking deep breath. No recent stressors, illness, fever, cough, cold symptoms, abdominal pain, nausea, vomiting. BP upon arrival 146/98. <Esthela Banegas PA-C - Last Filed: 01/25/22 04:19> Related Data Home medications: Home Medications Medication Instructions Recorded Confirmed lisinopril 10 mg tablet 10 mg PO DAILY 05/18/20 08/13/21 norethindrone 1 mg-ethin. 1 cap PO DAILY 05/18/20 08/13/21 estradiol 20 mcg (24)-iron 75 mg (4) capsule [facility] vitamin B complex (B 1 tablet PO DAILY 08/13/21 08/13/21 Complex-Vitamin B12 tablet) <Esthela Banegas PA-C - Last Filed: 01/25/22 04:19> Allergies/adverse reactions: Allergies Allergy/AdvReac Type Severity Reaction Status Date / Time Contrast Media Allergy Severe NECK/FACIAL Uncoded 01/24/22 22:53 SWELLING WITH EYE SWELLING CLOSED <Esthela Banegas PA-C - Last Filed: 01/25/22 04:19> Review of Systems Review of Systems: CONSTITUTIONAL: Reports sweats. Denies fever, chills. EYES: Denies visual changes. ENT: Denies rhinorrhea, congestion, sore throat. CARDIOVASCULAR: Reports chest tightness. RESPIRATORY: Reports SOB. Denies cough. GASTROINTESTINAL: Denies abdominal pain, nausea, vomiting. NEUROLOGIC: Reports dizziness. Denies headache, numbness, or weakness. <Esthela Banegas PA-C - Last Filed: 01/25/22 04:19> All systems reviewed & are unremarkable except as noted in HPI and below <Esthela Banegas PA-C - Last Filed: 01/25/22 04:19> [facility] Past Medical History Medical History: Medical History Bilateral ankle pain Bloating Diarrhea Encounter for postoperative care HTN (hypertension) Interstitial cystitis Rectal urgency Tarsal tunnel syndrome of right side Tarsal tunnel syndrome, left lower limb <Esthela Banegas PA-C - Last Filed: 01/25/22 04:19> Surgical History Surgical History: Surgical History H/O tubal ligation History of esophagogastroduodenoscopy (EGD) <Esthela Banegas PA-C - Last Filed: 01/25/22 04:19> Family History Family History: Family History Mother Hypertension <Esthela Banegas PA-C - Last Filed: 01/25/22 04:19> Social History Social History: Social History Smoking packs per day: 0.5 Smoking cigarettes per day: 10.0 Years smoked: 9 Smoking pack-years: 4.50 Smoking status: Former smoker Tobacco type: cigarettes Second hand tobacco smoke exposure: No Smoking en
[2022-01-24 23:45] VITALS: PULSE 91; RESP 24; O2SAT 99
[2022-01-24] MEDS: ONDANSETRON INJ 4 MG/2 ML VIAL IV PUSH (23:48)
[2022-01-24] MEDS: SODIUM CHLORIDE 0.9% IV 1,000 ML 999 ML IV CONT (23:48)
[2022-01-24] MEDS: POTASSIUM CHLORIDE 20 MEQ TABLET 40 MEQ PO (23:49)
[2022-01-25] VITALS (35 sets, daily range): BP systolic 139–183; BP diastolic 98–118; PULSE 76–106; RESP 13–28; O2SAT 97–100
[2022-01-25 00:53] LABS: Appearance Urine Clear (Clear); Bilirubin Urine Negative (Negative); Color Urine Yellow (Yellow); Glucose Urine UA Negative (Negative); Ketones Urine Negative (Negative); Leukocyte Esterase Ur Negative LEU/UL (Negative); Nitrate Urine Negative (Negative); Protein Urine Negative (Negative); Specific Grav Ur 1.015 (1.001-1.035); Urobilinogen Urine 0.2 mg/dL (<2.0); pH Urine 7.5 (5.0-9.0)
[2022-01-25 00:58] LABS: Bacteria Urine Trace /hpf; Squamous Epithelial Cell Urine Rare /hpf (Few); WBC Urine 0-3 /hpf
[2022-01-25 01:09] LABS: D Dimer 0.58 ug/mL (<0.48)
[2022-01-25 01:10] LABS: Add Urine Microscopic? YES; Blood Urine Trace (Negative)
[2022-01-25] MEDS: SODIUM CHLORIDE 0.9% IV 1,000 ML 999 ML IV CONT (02:15)
[2022-01-25] MEDS: predniSONE 40 MG, predniSONE 10 MG 50 MG PO ×2 (02:16→07:38)
[2022-01-25 03:18] LABS: CRP < 0.5 mg/dL (<1.0)
[2022-01-25 04:00] LABS: Erythrocyte Sedimentation Rate 7 mm/hr (0-20)
--- NOTE | 2022-01-25 07:46 | PC.NURSE ---
Report given to NIMCO Ware.
--- NOTE | 2022-01-25 08:02 | PC.NURSE ---
Pt in radiology at this time.
[2022-01-25] MEDS: MORPHINE SULFATE (*CRX) 2 MG/ML INJ IV PUSH (08:23)
== END 2022-01-25 09:43 | disposition home or self-care (01) ==
PROVIDERS: Emergency Medicine; Physician Assistant; Emergency Provider Emergency Medicine; PCP Internal Medicine
DX: I10 Essential (primary) hypertension (principal); R06.00 Dyspnea, unspecified; N30.10 Interstitial cystitis (chronic) without hematuria; K76.89 Other specified diseases of liver; Z87.891 Personal history of nicotine dependence; R07.89 Other chest pain; R00.0 Tachycardia, unspecified; R94.31 Abnormal electrocardiogram [ECG] [EKG]
CPT/HCPCS: 36415; 71046; 71275; 80053; 81001; 83690; 84484; 85025; 85380; 85610; 85652; 85730; 86140; 93005; 96361; 96374; 99284; A9270; J2270; J2405; J7030; J7512; Q9967

== ENCOUNTER 2022-01-29 10:58 | Outpatient (CLI) | payer OTHER, SELFPAY ==
--- NOTE | ~2022-01-29 | US_ITS ---
EXAMINATION: US abdomen limited DATE: 01/29/2022 11:52 INDICATION: Acute pancreatitis TECHNIQUE: Multiple grayscale and Doppler ultrasound images of the abdomen were obtained. COMPARISON: 02/12/2018 FINDINGS: The head and body of the pancreas are normal. The pancreatic tail is obscured by bowel gas. Cysts of the liver measure up to 2.8 cm. The liver is otherwise normal with normal echogenicity and echotexture. No surface nodularity. Normal hepatopetal flow in the main portal vein. The gallbladder is normal with no abnormal wall thickening, pericholecystic fluid or stones. The normal common bile d uct measures 5 mm. There was no sonographic Sheehan sign. IMPRESSION: 1. No sonographic correlate for the patient's symptoms. Reviewed, dictated and finalized at location A.
[2022-01-29 11:18] LABS: Basophils Absolute Auto 0.06 K/mm3 (0.00-0.10); Basophils Percent Auto 0.7 % (0.0-1.0); Eosinophils Absolute Auto 0.12 K/mm3 (0.02-0.50); Eosinophils Percent Auto 1.4 % (1.0-6.0); Hematocrit 37.7 % (35.0-49.0); Hemoglobin 12.8 g/dL (12.0-15.0); Immature Granulocyte Absolute 0.07 K/mm3 (0.00-0.00); Immature Granulocyte Percent A 0.8 % (0.0-0.0); Lymphocytes Absolute Auto 1.82 K/mm3 (1.10-4.50); Lymphocytes Percent Auto 21.8 % (18.0-42.0); Mean Corpuscular Hemoglobin 33.4 pg (27.0-31.0); Mean Corpuscular Volume 98.4 fL (78.0-102.0); Mean Platelet Volume 9.1 fl (9.2-11.8); Monocytes Absolute Auto 0.62 K/mm3 (0.10-0.90); Monocytes Percent Auto 7.4 % (2.0-11.0); Neutrophils Absolute Auto 5.7 K/mm3 (1.7-7.2); Neutrophils Percent Auto 67.9 % (50.0-70.0); Platelet Count Result 287 K/mm3 (150-420); Red Blood Count 3.83 M/mm3 (4.20-5.40); Red Cell Distribution Width 13.8 % (11.6-14.4); White Blood Count 8.4 K/mm3 (4.8-10.8)
[2022-01-29 11:22] LABS: Add Urine Microscopic? NO; Appearance Urine Clear (Clear); Bilirubin Urine Negative (Negative); Blood Urine Negative (Negative); Color Urine Yellow (Yellow); Glucose Urine UA Negative (Negative); Ketones Urine Negative (Negative); Leukocyte Esterase Ur Negative (Negative); Nitrate Urine Negative (Negative); Protein Urine Negative (Negative); Specific Grav Ur >= 1.030 (1.010-1.020); Urobilinogen Urine 0.2 mg/dL (0.2-1.0); pH Urine 5.5 (5.0-8.0)
[2022-01-29 11:49] LABS: Alanine Aminotransferase 36 U/L (14-59); Albumin Level 3.5 g/dL (3.4-5.0); Alkaline Phosphatase 79 U/L (46-116); Amylase 26 U/L (25-115); Anion Gap 11 mmol/L (8-16); Aspartate Amino Transferase 34 U/L (15-37); Bilirubin,Total 0.5 mg/dL (0.00-1.00); Blood Urea Nitrogen 10 mg/dL (7-18); Calcium 8.4 mg/dL (8.5-10.1); Carbon Dioxide 25 mmol/L (21-32); Chloride 105 mmol/L (98-108); Estimated Glomerular Filt Rate > 60; Free T3 2.55 pg/mL (2.18-3.98); Glucose 89 mg/dL (70-99); Lipase 79 U/L (73-393); Osmolality Calculated 290 mOsm/kg (285-295); Sodium 141 mmol/L (136-145); Thyroid Stimulating Hormone 1.28 uIU/mL (0.36-3.74); Total Protein 6.9 g/dL (6.4-8.2)
[2022-02-08 13:58] LABS: PRA 0.61 ng/mL/h (0.25-5.82)
== END 2022-01-29 10:59 | disposition home or self-care (01) ==
LOC: CHSLAB 11:00
PROVIDERS: PCP Internal Medicine; Visit Provider Internal Medicine
DX: K85.90 Acute pancreatitis without necrosis or infection, unspecified (principal); I10 Essential (primary) hypertension
CPT/HCPCS: 36415; 76705; 80053; 81003; 82088; 82150; 83690; 84244; 84439; 84443; 84481; 85025

== ENCOUNTER 2022-01-31 17:07 | Outpatient (CLI) | payer OTHER, SELFPAY ==
[2022-02-12 15:48] LABS: PRA 0.71 ng/mL/h (0.25-5.82)
== END 2022-01-31 17:08 | disposition home or self-care (01) ==
LOC: ANHOBOP 17:09
PROVIDERS: PCP Internal Medicine; Visit Provider Internal Medicine
DX: I10 Essential (primary) hypertension (principal)
CPT/HCPCS: 36415; 82088; 84244

== ENCOUNTER 2022-02-02 12:10 | Outpatient (CLI) | payer OTHER, SELFPAY ==
[2022-02-07 00:45] LABS: Calculated Total (E+NE) 51 mcg/24 h (26-121); Dopamine, 24hr Urine 164 mcg/24 h (52-480); Norepinephrine, 24hr Urine 51 mcg/24 h (15-100)
[2022-02-08 10:46] LABS: Metanephrine, Total Urine 573 mcg/24 h (182-739); Metanephrine, Urine 87 mcg/24 h (58-203); Normetanephrine, Urine 486 mcg/24 h (88-649)
== END 2022-02-02 12:11 | disposition home or self-care (01) ==
LOC: CHSLAB 12:12
PROVIDERS: PCP Internal Medicine; Visit Provider Internal Medicine
DX: K85.90 Acute pancreatitis without necrosis or infection, unspecified (principal); I10 Essential (primary) hypertension
CPT/HCPCS: 82384; 83835; 84585

== ENCOUNTER 2022-03-04 12:24 | Outpatient (CLI) | payer OTHER, SELFPAY ==
--- NOTE | ~2022-03-04 | MMUS_ITS ---
EXAMINATION: MM diagnostic victoriano LT w jayshree, US breast LT limited HISTORY: Follow-up left breast mass TECHNIQUE: Additional 3-D tomosynthesis images of the left breast were performed and synthetic 2-D im ages were generated. CAD analysis was submitted and interpreted. High resolution Limited left breast ultrasound was performed. COMPARISON: Comparison to multiple prior studies sequentially, with oldest reviewed study dated 08/23. BREAST PARENCHYMAL COMPOSITION: The breasts are heterogeneously dense, which may obscure small masses FINDINGS: MAMMOGRAPHIC FINDINGS: There is a stable mass in the lower outer quadrant of the left breast posteriorly. There are no suspi cious calcifications or architectural distortion. ULTRASOUND: Limited left breast ultrasound: At 4:00, 7 cm from the nipple there is a 6 mm intramammary lymph node . At 4:00, 5 cm from the nipple there is a 5 mm intramammary lymph node. There are no suspicious mass es to suggest malignancy. IMPRESSION: 1. No evidence for malignancy in the left breast. 2. Routine yearly screening mammogram and regular clinical breast examination are recommended. BI-RADS Category 2: Benign finding(s). Reviewed, dictated and finalized at location A. IMPRESSION: 1. No evidence for malignancy in the left breast. 2. Routine yearly screening mammogram and regular clinical breast examination a re recommended. BI-RADS Category 2: Benign finding(s).
== END 2022-03-04 12:25 | disposition home or self-care (01) ==
LOC: ANHIMG 12:27
PROVIDERS: PCP Internal Medicine; Visit Provider Obstetrics & Gynecology
DX: R92.8 Other abnormal and inconclusive findings on diagnostic imaging of breast (principal)
CPT/HCPCS: 76642; 77061; 77065; G0279

== ENCOUNTER 2022-04-02 12:20 | Outpatient (CLI) | payer OTHER, SELFPAY ==
[2022-04-02 13:04] LABS: Anion Gap 11 mmol/L (8-16); Blood Urea Nitrogen 11 mg/dL (7-17); Calcium 8.3 mg/dL (8.4-10.2); Carbon Dioxide 27 mmol/L (22-30); Chloride 102 mmol/L (98-107); Estimated Glomerular Filt Rate > 60; Glucose 84 mg/dL (65-110); Potassium 3.6 mmol/L (3.4-5.0); Sodium 140 mmol/L (137-145)
[2022-04-02 13:11] LABS: NT Pro B Type Natriuretic Pept 33 pg/mL (5-100)
== END 2022-04-02 12:21 | disposition home or self-care (01) ==
LOC: ANHLAB 12:24
PROVIDERS: PCP Internal Medicine; Visit Provider Internal Medicine Cardiovascular Disease
DX: R60.9 Edema, unspecified (principal); I10 Essential (primary) hypertension
CPT/HCPCS: 36415; 80048; 83880

== ENCOUNTER 2022-06-14 10:02 | Outpatient (CLI) | payer OTHER, SELFPAY ==
[2022-06-14 10:50] LABS: Anion Gap 8 mmol/L (8-16); Blood Urea Nitrogen 10 mg/dL (7-18); Carbon Dioxide 32 mmol/L (21-32); Chloride 99 mmol/L (98-108); Estimated Glomerular Filt Rate > 60; Glucose 93 mg/dL (70-99); Osmolality Calculated 287 mOsm/kg (285-295); Potassium 3.7 mmol/L (3.5-5.1); Sodium 139 mmol/L (136-145)
== END 2022-06-14 10:03 | disposition home or self-care (01) ==
LOC: CHSLAB 10:06
PROVIDERS: PCP Internal Medicine; Visit Provider Internal Medicine Cardiovascular Disease
DX: R60.0 Localized edema (principal); I10 Essential (primary) hypertension
CPT/HCPCS: 36415; 80048

== ENCOUNTER 2022-07-23 09:01 | Outpatient (CLI) | payer OTHER, SELFPAY ==
[2022-07-23 10:36] LABS: Alanine Aminotransferase 43 U/L (6-35); Albumin Level 4.4 g/dL (3.5-5.1); Alkaline Phosphatase 75 U/L (38-126); Anion Gap 9 mmol/L (8-16); Aspartate Amino Transferase 55 U/L (14-36); Bilirubin,Total 0.7 mg/dL (0.2-1.3); Blood Urea Nitrogen 10 mg/dL (7-17); Calcium 8.9 mg/dL (8.4-10.2); Carbon Dioxide 29 mmol/L (22-30); Chloride 102 mmol/L (98-107); Estimated Glomerular Filt Rate > 60; Glucose 94 mg/dL (65-110); Potassium 3.7 mmol/L (3.4-5.0); Sodium 140 mmol/L (137-145)
[2022-07-23 11:14] LABS: Thyroid Stimulating Hormone Reflex 0.608 uIU/mL (0.465-4.68)
[2022-07-26 05:34] LABS: FSH 6.3 mIU/mL (***)
[2022-07-29 22:31] LABS: Estradiol, Ultrasensitive 8 pg/mL
== END 2022-07-23 09:02 | disposition home or self-care (01) ==
PROVIDERS: PCP Internal Medicine; Visit Provider Obstetrics & Gynecology
DX: N95.1 Menopausal and female climacteric states (principal)
CPT/HCPCS: 36415; 80053; 82670; 83001; 84443

== ENCOUNTER 2023-08-05 09:53 | Outpatient (CLI) | payer OTHER, SELFPAY ==
[2023-08-05 10:52] LABS: Alanine Aminotransferase 31 U/L (6-35); Albumin Level 4.6 g/dL (3.5-5.1); Alkaline Phosphatase 89 U/L (38-126); Anion Gap 12 mmol/L (4-12); Aspartate Amino Transferase 43 U/L (14-36); Bilirubin,Total 0.5 mg/dL (0.2-1.3); Blood Urea Nitrogen 9 mg/dL (7-17); Calcium 9.6 mg/dL (8.4-10.2); Carbon Dioxide 24 mmol/L (22-30); Chloride 98 mmol/L (98-107); Cholesterol 275 mg/dL (0-200); Estimated Glomerular Filt Rate > 60; Glucose 103 mg/dL (65-110); HDL Direct 58 mg/dL; Potassium 3.4 mmol/L (3.4-5.0); Sodium 134 mmol/L (137-145); Triglycerides 334 mg/dL (<150)
[2023-08-05 11:05] LABS: LDL Cholesterol Direct 176 mg/dL
[2023-08-09 09:15] LABS: FSH 6.2 mIU/mL (***)
[2023-08-13 23:49] LABS: Estradiol, Ultrasensitive 77 pg/mL
== END 2023-08-05 09:54 | disposition home or self-care (01) ==
LOC: ANHLAB 09:55
PROVIDERS: PCP Internal Medicine; Visit Provider Obstetrics & Gynecology
DX: Z00.00 Encounter for general adult medical examination without abnormal findings (principal)
CPT/HCPCS: 36415; 80053; 80061; 82670; 83001; 84443

== ENCOUNTER 2024-05-06 10:46 | Emergency (ER) | payer OTHER, SELFPAY ==
--- NOTE | 2024-05-06 10:48 | ED_ITS ---
HPI - URI/Sore Throat General Chief Complaint: Upper Respiratory Infection Stated Complaint: sore throat Time Seen by Provider: 05/06/24 10:47 Source: patient Mode of arrival: ambulatory Limitations: no limitations History of Present Illness HPI Narrative: Patient is a 43-year-old female who presents with sore throat started yesterday. Denies any fever, chills, nausea, vomiting, diarrhea. Has been taking Tylenol and ibuprofen. Related Data Home Medications ?Medication ?Instructions ?Recorded ?Confirmed ?Last Taken ?Type norethindrone 1 mg-ethin. 1 cap PO DAILY 05/18/20 04/18/22 01/24/21 History estradiol 20 mcg (24)-iron 75 mg (4) capsule ([facility]) amlodipine 5 mg tablet 5 mg PO DAILY 04/18/22 05/06/24 Unknown History labetalol 200 mg tablet 200 mg PO Q12H 04/18/22 05/06/24 Unknown History lisinopril 10 mg tablet 40 mg PO DAILY 04/18/22 05/06/24 Unknown History simvastatin 10 mg tablet 10 mg PO DAILY 02/02/24 05/06/24 Unknown History alprazolam 0.25 mg tablet 0.25 mg PO 05/06/24 Unknown History hydrochlorothiazide 12.5 mg capsule 12.5 mg PO QAM 05/06/24 05/06/24 Unknown History Allergies Allergy/AdvReac Type Severity Reaction Status Date / Time Contrast Media Allergy Severe NECK/FACIAL Uncoded 05/06/24 11:26 SWELLING WITH EYE SWELLING CLOSED Review of Systems Review of Systems: All systems reviewed & are unremarkable except as noted in HPI and below Constitutional: Constitutional: Denies body ache(s), Denies fever(s), Denies headache(s), Denies malaise and Denies weakness Eyes: Eyes: Denies loss of vision ENT: Denies otalgia, Denies headache(s), Denies nasal congestion, Denies sinus pain and Reports sore throat Cardiovascular: Cardiovascular: Denies chest pain, Denies irregular heart rhythm and Denies dyspnea Respiratory: Respiratory: Denies cough and Denies dyspnea Gastrointestinal: Gastrointestinal: Denies abdominal pain, Denies melena, Denies hematochezia, Denies diarrhea, Denies nausea and Denies vomiting Musculoskeletal: Musculoskeletal: Denies back pain, Denies myalgias and Denies arthralgias Integumentary/Breasts: Skin/Breast: Denies pruritus and Denies rash Neurologic: Denies headache(s), Denies loss of vision and Denies weakness Psychiatric: Psychiatric: Reports no additional psychiatric complaints PMFSH Past Medical History Medical History Encounter for postoperative care Bilateral ankle pain Interstitial cystitis Tarsal tunnel syndrome, left lower limb Tarsal tunnel syndrome of right side HTN (hypertension) Rectal urgency Bloating Diarrhea Surgical History Surgical History H/O tubal ligation History of esophagogastroduodenoscopy (EGD) Family History Family History Mother Hypertension Social History Social History Smoking packs per day: 0.5 Smoking cigarettes per day: 10.0 Years smoked: 9 Smoking pack-years: 4.50 Smoking status: Former smoker Tobacco type: cigarettes Second hand tobacco smoke exposure: No Smoking end date: 05/05/09 Additional smoking assessment comments: 1/2 ppd x9 years Alcohol intake: current Drinks per week: 2 Alcohol use details: 2 glasses of wine on weekends Substance use: never Substance use type: does not use Last use: 05/05/2009 Living arrangements: with family Occupation/Education: occupation Gender identity (if verbalized by the patient): Female Sexual Orientation (if Verbalized by the Patient): Straight or Heterosexual Spiritual care concerns: No Comments At time of signature, agree with nursing past medical, surgical, social and family history. There is no relevant family history pertinent to the presenting complaint. Exam Const: General: cooperative, healthy appearing, comfortable, no acute distress and well nourished Nutritional Appearance: well nourished Orientation /consciousness: patient oriented x3 Limitations: no limitations HENMT: Head: normal to inspection, normocephalic and atraumatic Ears: hearing grossly normal bilaterally, external ears normal, TM's normal bilaterally and EAC's normal Face/Nose/Sinus: Normal external nose present, Normal nares present, Normal nasal mucous membranes and turbinates present, Normal septum present, normal facial exam, sinuses nontender and face symmetric Face and sinus: normal facial exam, sinuses nontender and face symmetric Mouth: Yes Normal oral and palatal mucosa present, Yes lip normal and Yes moist mucous membranes Teeth and gingiva: dentition normal Throat: uvula midline, abnormal tonsil bilateral erythema, exudates and hypertrophy, posterior oropharynx abnormal edema, erythema and exudates and postnasal drainage Eyes: General: appearance normal, both eyes and all related structures Alignment and Position: alignment normal and position normal Periorbital: periorbital findings normal Eyelids: eyelids normal Pupils: Equal, round and reactive pupils present Neck: Neck: normal visual inspection, full ROM, no lymphadenopathy and supple Chest: Chest palpation & inspection: normal inspection of the chest and normal palpation of entire chest wall Resp: Effort & Inspection: normal respiratory effort and able to speak in complete sentences Auscultation: clear to auscultation bilaterally, no crackl es, no rales, no rhonchi and no wheezes Cardio: Rate: regular rate Rhythm: regular rhythm Heart sounds: S1 normal heart sound present and S2 normal heart sound present GI: Inspection: normal to inspection Skin: General skin exam: normal color and no rashes or lesions noted Neuro: General: patient oriented x3 and moves all extremities Cranial nerves: Yes Equal, round and reactive pupils present Speech: normal speech Gait exam (Neuro): Normal gait present Extrem: General: normal to inspection, full ROM and no edema Psych: Appearance: grossly normal and well kempt Mental Status: mental status grossly normal Speech and movement: Normal speech and movement present Affect: normal affect Attitude: cooperative Thought process: Normal thought process present Course Course Emergency Course: Patient is aware of diagnosis, understands and agrees to treatment plan. Anticipatory guidance given. Patient agrees to follow-up as directed and is aware of reasons to seek care at the emergency department. Portions of this record may have been created with voice recognition software Level of Care: Express Care Visit Vital Signs Vital signs: Vital Signs Temperature 36.9 C 05/06/24 11:02 Pulse Rate 103 H 05/06/24 11:02 Respiratory Rate 16 05/06/24 11:02 Blood Pressure 162/106 H 05/06/24 11:02 Pulse Oximetry 99 05/06/24 11:02 Oxygen Delivery Room Air 05/06/24 11:02 Temperature 36.9 C 05/06/24 11:02 Pulse Rate 103 H 05/06/24 11:02 Respiratory Rate 16 05/06/24 11:02 Blood Pressure 162/106 H 05/06/24 11:02 Pulse Oximetry 99 05/06/24 11:02 Oxygen Delivery Room Air 05/06/24 11:02 Reviewed MDM - URI/Sore Throat MDM Narrative Medical decision making narrative: Patient positive for strep, will treat with antibiotics. Pt well hydrated appearing, in no respiratory distress, hemodynamically stable. Recommend supportive care. The patient is stable at time of discharge the clinical impression was discussed and the parent guardian was given the opportunity to ask questions, which were addressed as completely as possible given the information available at present. Anticipatory guidance and return to care precautions were discussed and the importance of primary care follow-up was stressed and encouraged. The guardian voiced understanding of the plan, indications to return, and the need for follow-up. Patient is appropriate for outpatient treatment and follow-up. Differential diagnosis considered: Carter virus, strep pharyngitis, allergic rhinitis, upper respiratory tract infection, sinusitis, rhinosinusitis, nasopharyngitis. viral pharyngitis, otitis media, otitis externa, otitis effusion, foreign body, cerumen impaction, viral syndrome, and influenza.? Medical Records Attestation: I reviewed the patient's medical records. Lab Data Attestation: I reviewed the patient's lab results. Labs: Lab Results 05/06/24 Range/Units 11:19 POC Grp A Strep Screen Positive (Negative) Discharge Plan Discharge Clinical Impression: Pharyngitis Qualifiers: Pharyngitis/tonsillitis etiology: streptococcus Qualified Code(s): J02.0 - Streptococcal pharyngitis Patient Disposition: Home, Self-Care Condition: Stable Instructions: Strep Throat (ED) Additional Instructions: Your rapid strep swab was positive today at [facility]. After 24 hours on antibiotics throw tooth brush away and start using a new one. Wash your sheets and cup/water bottle that is used daily. Do not share drinks. Take Motrin alternating with Tylenol for pain and fever alternating every 4 hours. Increase fluids, avoid caffeine. Other symptomatic treatments include: -Antihistamine medication such as Benadryl at night and Zyrtec/Claritin/Dian during the day can help improve symptoms. -Use Flonase twice a day for 5 days then daily to help reduce the inflammation and dry up your sinuses. -You can also use Sudafed or Mucinex. Be sure to drink plenty of water with these medications at least 8 ounces with every dose and it is important to drink 8 to 10 glasses of water per day. Water is a natural decongestant -Eat and drink things that are easy to swallow, like tea or soup, or popsicles. -Oral rinses such as: Salt water gargles and/or may use topical anesthetic (eg. Chloraseptic spray) or lozenges to relieve dryness or throat pain). -Frequent hand washing or hand necktie maker is one of the best ways to prevent spread of infection. -Using a vaporizer or humidifier at night will also help thin secretions and help with coughing up phlegm. -Follow up with primary care provider in 3-5 days if condition is not improving - For new or worsening symptoms go directly to the nearest ER Your blood pressure was elevated above 120/80 today at Urgent Care. This puts you above the threshold for follow up visit with a primary care provider. High blood pressure does not usually cause any symptoms, however it may lead to kidney failure, stroke, heart disease just to name a few if untreated . Many people are anxious when seeing a provider or nurse. As a result, you are not diagnosed with hypertension at this time unless your blood pressure is persistently high at two office visits at least one week apart. Some things that can help lower blood pressure are lifestyle modifications, such as light exercise, decreased salt in diet, and weight loss. It is important to follow up with a PCP about this within 1 week. Patient Language: Chinese Prescriptions: New amoxicillin 500 mg capsule 500 mg PO BID 10 Days Qty: 20 0RF No Action alprazolam 0.25 mg tablet 0.25 mg PO hydrochlorothiazide 12.5 mg capsule 12.5 mg PO QAM labetalol 200 mg tablet 200 mg PO Q12H amlodipine 5 mg tablet 5 mg PO DAILY norethindrone-e.estradiol-iron [[place]tulla] 1 mg-20 mcg (24)/75 mg (4) capsule 1 cap PO DAILY lisinopril 10 mg tablet 40 mg PO DAILY simvastatin 10 mg tablet 10 mg PO DAILY cholestyramine (with sugar) 4 gram powder 4 g PO BID Qty: 378 11RF Rx Instructions: administer w/meal; avoid other meds within 1hr before or 4-6hr after dose duloxetine 30 mg capsule,delayed release(DR/EC) See Rx Instructions .ROUTE .COMPLEX Qty: 90 2RF Dose Instruction: TAKE 1 CAPSULE BY MOUTH EVERY DAY Rx Instructions: TAKE 1 CAPSULE BY MOUTH EVERY DAY Follow-up/Referrals: Ector Torres MD [Primary Care Provider] - 3 Days Stand Alone Forms: Work/School Release IP Time of Disposition: 11:56
[2024-05-06 11:02] VITALS: BP 162/106; PULSE 103; RESP 16; TEMP 36.9; O2SAT 99
[2024-05-06 11:21] LABS: EDSTREPNEGPOS1 Positive (Negative)
== END 2024-05-06 11:56 | disposition home or self-care (01) ==
PROVIDERS: Emergency Provider Nurse Practitioner Family; PCP Internal Medicine
DX: J02.0 Streptococcal pharyngitis (principal); I10 Essential (primary) hypertension; Z87.891 Personal history of nicotine dependence
CPT/HCPCS: 87880; 99213; G0463

== ENCOUNTER 2024-07-09 01:34 | Day surgery (SDC) | payer OTHER, SELFPAY ==
[2024-06-30 13:19] VITALS: BMI 32.3
--- NOTE | 2024-06-30 13:25 | PC.NURSE ---
Report to the Outpatient Waiting Room, entrance under the green pavilion located off [facility], at time _0600_ on date _[phone]_. Planned Procedure Time: _0730_.? Time changes happen often and if your time is changed the preop area will call you the afternoon before. - You and your visitor will be asked to self-screen and do not enter if you have any COVID symptoms. Please call surgeon if you need to reschedule. - A mask is optional within the hospital at this time. Patients may have clear liquids (water, carbonated beverages, clear teas, apple juice) until 3 hours prior to surgery with a maximum of 20 ounces. - No food from midnight until time of surgery and no smoking, or chewing tobacco (or any form of nicotine). No chewing gum, candy or mints. Take only the following medications with a SIP of water on the morning of surgery: ___Labetolol, BC pill and if needed Alprazolam____ DO NOT STOP ANY OF YOUR OTHER PRESCRIPTION MEDICATIONS PRIOR TO SURGERY EXCEPT THE FOLLOWING Hold all vitamins and supplements for 3 days per anesthesiologist. Medications to discontinue per physician Date to take last dose Please no make-up, nail indonesian, hairspray, perfume, deodorant, or body powder the day of surgery.? No jewelry (including any body piercings) or valuables the day of surgery, leave them at home.? Please take a shower or bath the night before, or the morning of, surgery with an antibacterial soap.? Wear comfortable, loose fitting clothing.? - Jewelry must be removed prior to entering the operating room.? Rings and piercings that are not removed may be cut off. - The hospital will not accept responsibility for valuables.? - Please leave all valuables, including medications, at home the day of surgery. If you are going home after surgery, a licensed nascar driver must drive you home.? - NO public transportation without another adult if you receive anesthesia. - We recommend that an adult stay with you for 24 hours following discharge. - We also recommend that you do not drive, make important decision, drink alcoholic beverages, or take any drugs that were not prescribed by your health care provider for at least 24 hours after your discharge time. Follow any additional instructions given to you from your surgeon. Telephone instructions given to _Kerry___and asked if any additional questions and then verbalized understanding. Patient advised to call surgeon office or pre surgery nurse liaison [phone] if any additional questions.
--- NOTE | 2024-07-04 17:53 | PM.IMHP ---
H&P: HPI History of Present Illness Date/Time: 07/04/24 17:53 Chief Complaint: UUI Narrative: presents for InterStim revision Review of Systems Review of Systems: All systems reviewed & are unremarkable except as noted in HPI and below PMFSH Past Medical History Medical History Encounter for postoperative care Bilateral ankle pain Interstitial cystitis Tarsal tunnel syndrome, left lower limb Tarsal tunnel syndrome of right side HTN (hypertension) Rectal urgency Bloating Diarrhea Surgical History Surgical History H/O tubal ligation History of esophagogastroduodenoscopy (EGD) Family History Family History Mother Hypertension Social History Social History Smoking packs per day: 0.5 Smoking cigarettes per day: 10.0 Years smoked: 8 Smoking pack-years: 4.00 Smoking status: Former smoker Tobacco type: cigarettes Second hand tobacco smoke exposure: No Smoking end date: 06/30/10 Additional smoking assessment comments: 1/2 ppd x9 years Alcohol intake: current Drinks per week: 2 Alcohol use details: 2 glasses of wine on weekends Substance use: never Substance use type: does not use Last use: 05/05/2009 Living arrangements: with family Occupation/Education: occupation Gender identity (if verbalized by the patient): Female Sexual Orientation (if Verbalized by the Patient): Straight or Heterosexual Spiritual care concerns: No Meds Home Medications and Allergies Home Medications ?Medication ?Instructions ?Recorded ?Confirmed ?Type norethindrone 1 mg-ethin. 1 cap PO DAILY 05/18/20 06/30/24 History estradiol 20 mcg (24)-iron 75 mg (4) capsule (Niki) labetalol 200 mg tablet 200 mg PO Q12H 04/18/22 06/30/24 History duloxetine 30 mg capsule,delayed See Rx Instructions .Route 06/16/23 06/30/24 Rx release .COMPLEX #90 caps simvastatin 10 mg tablet 10 mg PO DAILY 02/02/24 06/30/24 History alprazolam 0.25 mg tablet 0.25 mg PO TID PRN anxiety 05/06/24 06/30/24 History Allergies Allergy/AdvReac Type Severity Reaction Status Date / Time Contrast Media Allergy Severe NECK/FACIAL Uncoded 06/30/24 13:18 SWELLING WITH EYE SWELLING CLOSED Exam Narrative: NAD A+O x3 Assessment and Plan Assessment and plan (1) Urge incontinence: Code(s): N39.41 - Urge incontinence Status: Acute Assessment and Plan: remove and replace InterStim
--- NOTE | 2024-07-08 12:45 | WPDANESEPPF ---
Anes - Initial Pre Proc Eval Procedure: Operation Date: 07/09/24 07:30 Proposed Procedures p Removal and Replacement Neurostimulator Implant - Navi Baugh MD Date/Time: 07/08/24 12:45 Surgeon: Navi Baugh MD Pre Op Diagnosis: urge incont Patient Data Age: 44 Gender: F Height: 1.52 m Weight: 75 kg Allergies Allergy/AdvReac Type Severity Reaction Status Date / Time Contrast Media Allergy Severe NECK/FACIAL Uncoded 07/09/24 06:58 SWELLING WITH EYE SWELLING CLOSED Home Medications ?Medication ?Instructions ?Recorded ?Confirmed ?Type norethindrone 1 mg-ethin. 1 cap PO DAILY 05/18/20 06/30/24 History estradiol 20 mcg (24)-iron 75 mg ([facility] labetalol 200 mg tablet 200 mg PO Q12H 04/18/22 07/09/24 History duloxetine 30 mg capsule,delayed See Rx Instructions .Route 06/16/23 06/30/24 Rx release .COMPLEX #90 caps simvastatin 10 mg tablet 10 mg PO DAILY 02/02/24 06/30/24 History alprazolam 0.25 mg tablet 0.25 mg PO TID PRN anxiety 05/06/24 06/30/24 History Results Review: All pre-operative results and documents have been reviewed as part of the pre-operative evaluation. [facility] Past Medical History Medical History Encounter for postoperative care Bilateral ankle pain Interstitial cystitis Tarsal tunnel syndrome, left lower limb Tarsal tunnel syndrome of right side HTN (hypertension) Rectal urgency Bloating Diarrhea Surgical History Surgical History H/O tubal ligation History of esophagogastroduodenoscopy (EGD) Family History Family History Mother Hypertension Social History Social History Smoking packs per day: 0.5 Smoking cigarettes per day: 10.0 Years smoked: 8 Smoking pack-years: 4.00 Smoking status: Former smoker Tobacco type: cigarettes Second hand tobacco smoke exposure: No Smoking end date: 06/30/10 Additional smoking assessment comments: 12 ppd x9 years Alcohol intake: current Drinks per week: 2 Alcohol use details: 2 glasses of wine on weekends Substance use: never Substance use type: does not use Last use: 05/05/2009 Living arrangements: with family Occupation/Education: occupation Gender identity (if verbalized by the patient): Female Sexual Orientation (if Verbalized by the Patient): Straight or Heterosexual Spiritual care concerns: No Anes - Eval Final PreProcedure Day of Procedure 07/08/24 12:45 Patient weight: obese Heart: regular rate and rhythm Lungs: clear to auscultation Airway: Mallampati scale class II Neurological: alert and oriented Last oral intake: >/= 8 hours ASA classification: II Emergent: no Anesthetic plan: proceed Anesthesia type and monitoring: general ETT and standard monitoring Results Review: All pre-operative results and documents have been reviewed as part of the pre-operative evaluation. Informed Consent: The patient's anesthetic plan and its attendant risks and benefits were discussed with the patient/family/POA. Questions were solicited and answers provided to the satisfaction of the patient/family/POA.
--- NOTE | ~2024-07-09 | XR_ITS ---
EXAMINATION: XR fluoroscopy no charge DATE: 07/09/2024 08:13 INDICATION: Neuro stimulator lead removal and replacement TECHNIQUE: 25 fluoroscopic images of the pelvis were obtained during procedure performed by Dr. Urszula sanchez. Radiologist was not present for the imaging or procedure. The amount of fluoroscopy time used dur ing this procedure was 0.5 minutes. Total DAP was 10.825 Gycm^2 COMPARISON: None. FINDINGS: Initial images demonstrate a marker projecting over the sacral nerve root stimulator in one of the S4 neural foramina, likely right-sided however markers are not included for confirmation. Subsequent im ages demonstrate removal of the spinal stimulator lead and placement of a new likely left S4 nerve ro ot stimulator lead. IMPRESSION: 1. Fluoroscopy utilized during sacral nerve root removal and contralateral replacement. See procedure note for further detail. Reviewed, dictated and finalized at location B. RAIT PAINTER IMPRESSION: 1. Fluoroscopy utilized during sacral nerve root removal and contralateral repl acement. See procedure note for further detail.
--- OUTSIDE RECORDS SUMMARY | 2024-07-09 01:43 | XMS_ITS | Referral Summary ---
Author Organization [facility] [address] Address [address] [place] [address] Care Team Providers Care Scaler Name Role Phone Ector Torres MD Primary Care Provider [phone] Allergies Active Allergy Reactions Criticality Noted Date Comments Iodinated Contrast Media Swelling Medium 03/22/2022 Facial swelling Medications norethindrone-e .estradioL-iron (ESTROSTEP FE) 1-20(5)/30(7) /1mg-35mcg (9) tablet Take 1 tablet by mouth daily [place] Active cholestyramine (QUESTRAN) 4 gram powder 03/15/[address] (CYMBALTA) 30 mg capsule Take 1 capsule (30 mg total) by mouth daily Active ALPRAZolam (XANAX) 0.25 mg tablet Take 1 tablet (0.25 mg total) by mouth daily 09/19/2022 Active HYDROcodone-mahamed taminophen (NORCO) 7.5-325 mg per tablet 0 10/19/2022 Activ e labetaloL (NORMODYNE,VALENZUELA DATE) 100 mg tablet Take 2 tablets (200 mg total) by mouth 2 (two) times a day 56 tablet 01/23/2024 Active lisinopriL (PRINIVIL,ZESTR IL) 40 mg tablet Take 1 tablet (40 mg total) by mouth daily 14 tablet 01/23/2024 Active hydroCHLOROthia zide (MICROZIDE) 12.5 mg capsule Take 1 capsule (12.5 mg total) by mouth every morning 14 capsule 01/23/2024 Active simvastatin (ZOCOR) 10 mg tablet 02/02/2024 Active Active Problems Problem Noted Date Diagnosed Date Localized edema 05/24/2022 Shortness of breath 05/24/2022 Abnormal mammogram 2022 Essential hypertension 03/22/2022 Medication side effects 03/22/2022 Chronic fatigue 03/22/2022 Palpitations 03/22/2022 Social History Tobacco Use Types Packs/Day Years Used Date Smoking Tobacco: Former Cigarettes Q uit: 2009 Tobacco Cessation:Counseling Given: Not Answered Personal Safety Answer Date Recorded Getting School Help Needed Not on file 04/18 Comments Unknown Sex and Gender Information Value Date Recorded Sex Assigned at Not on file Legal Sex Female 4:05 PM CDT Gender Identity Not on file Sexual Orientation Not on file Last Filed Vital Signs Vital Sign Reading Time Taken Comments Blood Pressure 118/82 02/05/2024 8:58 AM CDT Pulse 110 02/05/2024 8:58 AM CDT Temperature - - Respiratory Rate - - Oxygen Saturation 98% 02/05/2024 8:58 AM CDT Inhaled Oxygen Concentration - - Weight 72.8 kg (160 lb 9.6 oz) 02/05/2024 8:58 A M CDT Height 165.1 cm (5' 5 ) 02/05/2024 8:58 AM CDT Body Mass Index 26.73 02/05/2024 8:58 AM CDT Plan of Treatment Not on file Procedures Procedure Name Priority Date/Time Associated Diagnosis Comments SCREENING MAMMOGRAM BILATERAL W MINISTERIO Schedule Routine, Read Routine (OP Routine) 11/27/2023 10:41 AM CDT Abnormal mammogram from Last 3 Months or Most Recently Relevant to Health Maintenance Results * Screening Mammogram Bilateral W Ministerio (11/27/2023 10:41 AM CDT) Anatomical Region Laterality Modality Breast Bilateral Mammography Narrative 11/27/2023 12:43 PM CDT Mammogram Technique: Bilateral Digital Breast Tomosynthesis, Bilateral C-view 2D Screening mammogram. Views obtained: bilateral craniocaudal and bilateral mediolateral oblique. Computer Aided Detection was performed. Mammogram Findings: The present examination has been compared to prior imaging studies performed at [facility] on 2022 and 11/14/2022. The breasts are heterogeneously dense, which may obscure small masses. There is no suspicious abnormality in either breast. Impression: There is no mammographic evidence of malignancy. Annual screening mammography is recommended. If supplemental screening is desired, breast MRI would be recommended in this patient with heterogeneously dense breasts. OVERALL FINAL ASSESSMENT: BI-RADS CATEGORY 1: Negative. Procedure Note Chelita Yeager MD - 11/27/2023 Mammogram Technique: Bilateral Digital Breast Tomosynthesis, Bilateral C-view 2D Screening mammogram. Views obtained: bilateral craniocaudal and bilateral mediolateral oblique. Computer Aided Detection was performed. Mammogram Findings: The present examination has been compared to prior imaging studies performed at [facility] on 2022 and 11/14/2022. The breasts are heterogeneously dense, which may obscure small masses. There is no suspicious abnormality in either breast. Impression: There is no mammographic evidence of malignancy. Annual screening mammography is recommended. If supplemental screeningis desired, breast MRI would be recommended in this patient with heterogeneously dense breasts. OVERALL FINAL ASSESSMENT: BI-RADS CATEGORY 1: Negative. Maribel Kraft NP IM MAMMO PROCEDURES Final Result from Last 3 Months or Most Recently Relevant to Health Maintenance Insurance [employer] [facility] Care Teams Scaler Relationship Specialty Start Date End Date Ector Torres MD [address] [place] [address] PCP - General Internal Medicine 02/11/22
--- OUTSIDE RECORDS SUMMARY | 2024-07-09 01:43 | XMS_ITS | Patient Health Summary ---
Author Organization [facility] [employer] Address [address] [place] [address] Care Team Providers Care Surgical Instrument Mechanic Name Role Phone Ector Torres MD Primary Care Provider [phone] [facility],non-owned Affiliates and Associated Physician Practices is amultiple site organization consisting of ambulatory clinics and hospital sitesin [place], [place], [place] and [place]. This disclosure is being madepursuant to the Care Everywhere program and may not contain all information available regarding this patient. Last updated 18.[facility] [employer] Allergies No known active allergies Medications * Be aware that medications may not be up to date on this document. Alwaysverify current medications with the patient. * naproxen (NAPROSYN) 500 MG tablet Take 500 mg by mouth 2 times daily. * tramadol (ULTRAM) 50 MG tablet Take 50 mg by mouth every 6 hours as needed for Pain. Social History Tobacco Use Types Packs/Day Years Used Date Smoking Tobacco: Never Alcohol Use Standard Drinks/Week Comments Yes 0 (1 standard drink = 0.6 oz pur e alcohol) occasional Sex and Gender Information Value Date Recorded Sex Assigned at Not on file Gender Identity Not on file Sexual Orientation Not on file Last Filed Vital Signs Vital Sign Reading Time Taken Comments Blood Pressure 108/70 06/26/2009 12:42 PM PAINTER SPRING Pulse 91 06/26/2009 12:42 PM PAINTER SPRING Temperature 36.4 C (97.5 F) 06/26/2009 11:15 AM PAINTER SPRING Respiratory Rate 16 06/26/2009 12:42 PM PAINTER SPRING Oxygen Saturation 100% 06/26/2009 11:15 AM PAINTER SPRING Inhaled Oxygen Concentration - - Weight 61.2 kg (135 lb) 06/26/2009 7:19 AM PAINTER SPRING Height 165.1 cm (5' 5 ) 06/26/2009 7:19 AM PAINTER SPRING Body Mass Index 22.47 06/26/2009 7:19 AM PAINTER SPRING Procedures * CARDIAC RHYTHM STRIP ORDER(Performed 07/04/2009) * HCG URINE QUALITATIVE(Performed 06/26/2009) Performed for Endometriosis, Site Unspecified * CULTURE YEAST(Performed 03/01/2009) * CULTURE URINE COMPREHENSIVE(Performed 03/01/2009) * WET PREP - POINT OF CARE (AMB) [facility](Performed 05/05/1998) * URINALYSIS - POINT OF CARE (AMB) [facility](Performed 05/05/1998) Results * CARDIAC RHYTHM STRIP ORDER (07/04/2009 1:38 PM PAINTER SPRING) Narrative 07/04/2009 1:38 PM PAINTER SPRING Ordered by an unspecified provider. Transcriptions Document, Scanned - 06/26/2009 12:00 AM PAINTER SPRING Scanned Document CARDIAC SERVICES ORD ERABLES * HCG URINE QUALITATIVE (06/26/2009 7:10 AM PAINTER SPRING) HCG Qual Urine Negative SEE BELOW [facility] Comment: Normal, Negative Pos, Sensitivity 25 MIU/ML Comment hCG Urine [facility] Comment: For optimal results, it is best to test the first urine voided in the morning because it contains the greatest concentration of hCG. URINE / Unknown 06/26/2009 7 :10 AM PAINTER SPRING 06/26/2009 7:17 AM PAINTER SPRING Saleem Hoffman MD LAB - URINALYSIS OR DERABLES [facility] [address] [place] [address] * CULTURE URINE COMPREHENSIVE (03/01/2009 11:45 AM CDT) Culture SEE NOTE [facility] ([facility]) Comment: CULTURE, URINE, SPECIAL MICRO NUMBER: [id number] TEST STATUS: FINAL SPECIMEN SOURCE: URINE (CATHETER COLLECTED) SPECIMEN COMMENTS: ADEQUATE RESULT: NO GROWTH Test Performed at: [employer] [facility] [address] [place] [address] BRET PHAM MD URINE SPECIMEN COLLECTION, CATHETERIZED / Unknown 03/01/2009 11:45 AM CDT 03/02/2009 2:14 AM CDT Narrative [facility] ([facility]) - 03/09/2009 7:00 AM PAINTER SPRING Preferred Lab:->[facility] Nestor Valente MD LAB - MICROBIOLOGY O RDERABLES Performing Organization Address [facility]/State/ZIP Co de Phone Number [facility] ([facility]) * CULTURE YEAST (03/01/2009 11:45 AM CDT) Culture SEE NOTE [facility] ([facility]) Comment: CULTURE, YEAST, W/IDENTIFICATION MICRO NUMBER: [id number] TEST STATUS: FINAL SPECIMEN SOURCE: UNSPECIFIED SPECIMEN COMMENTS: ADEQUATE RESULT: NO GROWTH AFTER 7 DAYS. Test Performed at: [employer] [facility] [address] [place] [address] BRET PHAM MD Other (qualifier value) 03/01/2009 11:45 AM CDT 03/02/2009 2:14 AM CDT Narrative [facility] ([facility]) - 03/09/2009 7:00 AM PAINTER SPRING Preferred Lab:->[facility] Nestor Valente MD LAB - MICROBIOLOGY O RDERABLES Performing Organization Address [facility]/ZIP Co de Phone Number [facility] ([facility]) * WET PREP - POINT OF CARE (AMB) [facility] (05/05/1998 12:00 AM PAINTER SPRING) pH Wet Prep [facility] Yeast Wet Prep neg [facility] Trichomonas Wet Prep neg [facility] Bacteria Wet Prep neg [facility] Whiff Test [facility] 05/05/1998 Narrative [facility] - 05/05/1998 12:00 AM PAINTER [facility] Increased few parabasals. No clue cells. No yeast Nestor Valente MD LAB - POINT OF CARE ORDERABLES [facility] * URINALYSIS - POINT OF CARE (AMB) [facility] (05/05/1998 12:00 AM PA[facility] SPRING) Glucose UA neg [facility] Bilirubin UA POCT neg [facility] Ketones UA POCT neg [facility] Specific [place] UA 1.000 [facility] Blood Urine POCT [facility] pH UA 8.0 [facility]END[facility] Protein UA neg [facility] Urobilinogen UA neg [facility] Nitrite UA neg [facility] WBC UA neg [facility] Urine specimen (specimen) 05/05/1998 Fa Sheila Valente MD LAB - POINT OF CARE ORDERABLES Performing Organization Address City/[facility]/ZIP Co de Phone Number [facility] Care Teams Surgical Instrument Mechanic Relationship Specialty Start Date End Date Ector Torres MD PCP - General 06/26/20
--- OUTSIDE RECORDS SUMMARY | 2024-07-09 01:43 | XMS_ITS | Clinical Summary ---
Author Organization [facility] [employer] Address [address] [place] [address] Care Team Providers Care Visual Basic Programmer Name Role Phone Ector Torres MD Primary Care Provider [phone] Source Comments [facility] [employer],non-owned Affiliates and Associated Physician Practices is amultiple site organization consisting of ambulatory clinics and hospital sitesin [place], [place], [place] and [place]. This disclosure is being madepursuant to the Care Everywhere program and may not contain all information available regarding this patient. Last updated 18.[facility] [employer] Allergies No known active allergies Medications * Be aware that medications may not be up to date on this document. Alwaysverify current medications with the patient. Medication Sig Dispensed Refills Start Date End Date Status naproxen (NAPROSYN) 500 MG tablet Take 500 mg by mouth 2 times daily. Active tramadol (ULTRAM) 50 MG tablet Take 50 mg by mouth every 6 hours as needed for Pain. Active Social History Tobacco Use Types Packs/Day Years [...] Comments Blood Pressure 108/70 06/26/2009 12:42 PM DEVOPS DEVELOPER Pulse 91 06/26/2009 12:42 PM DEVOPS DEVELOPER Temperature 36.4 C (97.5 F) 06/26/2009 11:15 AM DEVOPS DEVELOPER Respiratory Rate 16 06/26/2009 12:42 PM DEVOPS DEVELOPER Oxygen Saturation 100% 06/26/2009 11:15 AM DEVOPS DEVELOPER Inhaled Oxygen Concentration - - Weight 61.2 kg (135 lb) 06/26/2009 7:19 AM DEVOPS DEVELOPER Height 165.1 cm (5' 5 ) 06/26/2009 7:19 AM DEVOPS DEVELOPER Body Mass Index 22.47 06/26/2009 7:19 AM DEVOPS DEVELOPER Plan of Treatment Health Maintenance Due Date Last Done Comments LIPID TESTING 1981 MAMMOGRAM 1981 PAP SMEAR 1981 HIV SCREENING 1996 HEPATITIS C SCREENING 05/12/1999 DTAP/TDAP/TD VACCINES (1 - Tdap) 2000 HEPATITIS B VACCINE (1 of 3 - 19+ 3-dose series) 2000 COVID-19 VACCINE (1 - 2023-2 5 season) 2024 INFLUENZA VACCINE (#1) 2024 DEPRESSION SCREENING 05/05/2024 ZOSTER VACCINE (1 of 2) 2031 HIB VACCINE Aged Out No longer eligi ble based on patient's age to complete this topic HPV VACCINE Aged Out No longer eligi ble based on patient's age to complete this topic MENINGOCOCCAL (Group B) VACCINE Aged Out No longer eligible based on patient's age to complete this topic MENINGOCOCCAL VACCINE Aged Out No fernanda lico eligible based on patient's age to complete this topic PNEUMOCOCCAL VACCINE Aged Out No long er eligible based on patient's age to complete this topic Care Teams Visual Basic Programmer Relationship Specialty Start Date End Date Ector Torres MD PCP - General 06/26/20
--- OUTSIDE RECORDS SUMMARY | 2024-07-09 01:43 | XMS_ITS | Clinical Summary ---
Author Organization [facility] [address] Address [address] [place] [address] Care Team Providers Care Director Of Solutions Architecture Name Role Phone Ector Torres MD Primary Care Provider + [phone] Allergies Active Allergy Reactions Criticality Noted Date [...] effects 03/22/2022 Chronic fatigue 03/22/2022 Palpitations 03/22/2022 Surgical History Surgery Date Site/Laterality Comments TUBAL LIGATION FOOT SURGERY Bilateral Medical History Medical History Date Comments Hypertension Interstitial cystitis Bladder problem Family History Medical History Relation Name Comments No Known Problems Father Hypertension Mother Relation Name Status Comments Father Alive Mother Alive Social History Tobacco Use Types Packs/Day Years [...] on file Sexual Orientation Not on file Obstetrics History Last Filed Vital Signs Vital Sign Reading [...] 02/05/2024 8:58 AM CDT Plan of Treatment Health Maintenance Due Date Last Done Comments Cervical Cancer Screening 1981 Depression Screening 1981 Hepatitis C Screening 1981 DTaP/Tdap/Td Vaccine (1 - Tdap) 1992 Varicella Vaccines (1 of 2 - 13+ 2-dose series) 1994 Hepatitis B Screening 1999 Regular Well Visit/Exam 18-64 1999 Covid-19 Vaccine (2 - 2023-2 5 season) 2024 08/10/2020 Influenza Vaccine (#1) 2024 Breast Cancer Screening-Mammogram 11/26/2024 11/27/2023, 11/14/2022 HPV Vaccines Aged Out No longer eligi ble based on patient's age to complete this topic Pneumococcal vaccine <65 Aged Out No longer eligible based on patient's age to complete this topic Procedures Procedure Name Priority Date/Time Associated Diagnosis [...] compared to prior imaging studies performed at [facility] on 2022 and 11/14/2022. The breasts [...] compared to prior imaging studies performed at [facility] on 2022 and 11/14/2022. The breasts are heterogeneously dense, which may obscure small masses. There is no suspicious abnormality in either breast. Impression: There is no mammographic evidence of malignancy. Annual screening mammography is recommended. If supplemental screeningis desired, breast MRI would be recommended in this patient with heterogeneously dense breasts. OVERALL FINAL ASSESSMENT: BI-RADS CATEGORY 1: Negative. Maribel Kraft NP IMG MAMMO PROCEDURES Final Result from Last 3 Months or Most Recently Relevant to Health Maintenance Insurance [facility] HMO/PPO Address: [address] [address] [place] [address] Care Teams Director Of Solutions Architecture Relationship Specialty Start Date End Date Ector Torres MD [address] [place] [address] PCP - General Internal Medicine 02/11/22
--- OUTSIDE RECORDS SUMMARY | 2024-07-09 01:43 | XMS_ITS | Referral Summary ---
Author Organization [facility] Address [address] [facility] [place] [address] Care Team Providers Care Fire Prevention Engineer Name Role Phone Ector Torres MD Primary Care Provider [phone] Source Comments [facility],non-owned Affiliates and Associated Physician Practices is amultiple site organization consisting of ambulatory clinics and hospital sitesin [place], [place], [place] and [place]. This disclosure is being madepursuant to the Care Everywhere program and may not contain all information available regarding this patient. Last updated 18.[facility] Allergies No known active allergies Medications * [...] Comments Blood Pressure 108/70 06/26/2009 12:42 PM RADIO OPERATOR GROUND Pulse 91 06/26/2009 12:42 PM RADIO OPERATOR GROUND Temperature 36.4 C (97.5 F) 06/26/2009 11:15 AM RADIO OPERATOR GROUND Respiratory Rate 16 06/26/2009 12:42 PM RADIO OPERATOR GROUND Oxygen Saturation 100% 06/26/2009 11:15 AM RADIO OPERATOR GROUND Inhaled Oxygen Concentration - - Weight 61.2 kg (135 lb) 06/26/2009 7:19 AM RADIO OPERATOR GROUND Height 165.1 cm (5' 5 ) 06/26/2009 7:19 AM RADIO OPERATOR GROUND Body Mass Index 22.47 06/26/2009 7:19 AM RADIO OPERATOR GROUND Plan of Treatment Not on file Care Teams Fire Prevention Engineer Relationship Specialty Start Date End Date Ector Torres MD PCP - General 06/26/20
--- OUTSIDE RECORDS SUMMARY | 2024-07-09 01:43 | XMS_ITS | Encounter Summary ---
Author Organization [facility] Healthcare Address [address] [place] [address] Care Team Providers Care Electric Cutter Operator Name Role Phone Unavailable Primary Care Provider Unavailabl e Reason for Visit * Diagnostic Imaging (Routine) - Closed Specialty Diagnoses / Procedures Referred By Mireille farias Referred To Contact Procedures Breast Imaging Diagnostic Outside Reference Maribel Kraft NP Phone: tel: fax: Referral ID Status Reason Start Date Expiration Date Visits Re quested Visits Authorized [id number] Closed 04/26/2022 05/26/2023 1 1 Encounter Details Date Type Department Care Team (Late st Contact Info) Description 07/21/2018 Hospital Encounter [facility] [address] [place] [address] [phone] Social History Tobacco Use Types Packs/Day Years Used Date Smoking Tobacco: Former Cigarettes Q uit: 2009 Personal Safety Answer Date Recorded Getting School Help Needed Not on file 04/18 Comments Unknown Sex and Gender Information Value Date Recorded Sex Assigned at Not on file Legal Sex Female 4:05 PM CDT Gender Identity Not on file Sexual Orientation Not on file documented as of this encounter Plan of Treatment Not on file documented as of this encounter Procedures Procedure Name Priority Date/Time Associated Diagnosis Comments BREAST IMAGING MG DIAGNOSTIC OUTSIDE REFERENCE Routine 07/21/2018 12:00 AM CDT documented in this encounter Results * Breast Imaging Diagnostic Outside Reference (07/21/2018 12:00 AM CDT) Impressions RAD_MAMMO[facility] - 04/26/2022 3:06 PM PROPERTY MANAGEMENT BOOKKEEPER These images are for Reference purposes only and have not been reviewed by [facility]. There will be no report generated by a [facility] Radiologist. Narrative [facility]MO[facility] - 04/26/2022 3:06 PM PROPERTY MANAGEMENT BOOKKEEPER EXAMINATION: Images For Reference Purposes Only us Maribel Kraft NP IMG MAMMO PROCEDURES Final Result [facility] documented in this encounter Visit Diagnoses Not on filedocumented in this encounter
--- NOTE | 2024-07-09 04:19 | WPDHPUPDATE1 ---
History and Physical Update Update Date/Time: 07/09/24 04:19 History and Physical has been reviewed, including an updated exam of the patient. There are NO changes in the patient's condition. Risks, benefits, and alternatives have been discussed and questions answered. Patient agrees to proceed with procedure.
[2024-07-09 06:59] VITALS: BP 150/98; PULSE 90; TEMP 36.4; O2SAT 98; BMI 31.0
[2024-07-09] MEDS: LACTATED RINGERS 1,000 ML 30 ML IV CONT ×2 (07:03→08:37)
[2024-07-09 07:04] LABS: BEDSIDEPREGUCG Negative (Negative)
[2024-07-09] MEDS: BUPIVACAINE/EPINEPHRINE 0.5% 30 ML VIAL INFILTRATE (07:29)
[2024-07-09] MEDS: ceFAZolin 2 GM/D5W 50 ML 2 GM/50 ML BAG IVPB (07:29)
[2024-07-09 08:25] VITALS: BP 123/80; PULSE 90
--- NOTE | 2024-07-09 08:33 | W.PM.PROC2 ---
Procedure Note - Detailed Date of Procedure 07/09/24 Pre-op Diagnosis urge incont Post-op Diagnosis Same Procedure Performed Removal of previously placed sacral lead 13515 Implantation of sacral lead 28059 Placement of implantable pulse generator 40303 Complex neurostimulator programming impedance check [id number] Surgeon Navi Baugh MD Anesthesia MAC and Local Indications This is a patient with refractory urge urinary incontinence. She has had InterStim device in place for some time. She is here for revision as her battery is at end of service and she would like to be MRI compatible. She understands risks of bleeding, infection, incomplete device removal, incomplete efficacy. She agrees to proceed Findings See dictated Description of Procedure They were correctly identified and informed consent was obtained. There brought to the operating room. There placed in the prone position. There given appropriate perioperative antibiotics. A time-out performed. I anesthetized the skin over the pulse generator. I incised the skin and explanted the pulse generator. I then located the previously placed sacral lead on the patient's right. I did this under fluoroscopy. I anesthetized the skin. I incised the skin. I then located the sacral lead on the right and removed in its entirety I used fluoroscopy to jese out my sacral landmarks in the AP and the lateral orientation. I anesthetized the skin. I entered the S3 foramen. I did this on the patient's left which is contralateral to the previously right-sided lead. I monitored the needle with fluoroscopy. I got appropriate Erika and toe response at a low threshold. I made a skin bonnie. I placed a stylet. I placed the lead introducer sheath. I then placed and deployed to my lead. I did this under fluoroscopy. I got appropriate responses again at a low threshold. I did a skipping incision to take up extra lead. I tunneled the lead towards this pocket where the previous pulse generator was housed. Appropriate connections were made between the lead and the battery. The battery was programmed. It was placed in the pocket. impedances were checked and found to be normal. I irrigated out all wounds. I ensured hemostasis. I closed the subcutaneous tissues with 2 Vicryl. I closed the skin with 4 0 Vicryl. Glue was applied. There then awakened and transferred to the PACU in stable condition. Implants Sacral neurostimulator Estimated Blood Loss 10 Drains No Packing No Pathology None sent Condition Stable Disposition PACU
[2024-07-09] MEDS: HYDROmorphone HCL INJ (*CRX) 1 MG/ML SYR IV PUSH (08:51)
[2024-07-09 08:55] VITALS: BP 130/82; PULSE 86
[2024-07-09 09:25] VITALS: BP 131/78; PULSE 84
== END 2024-07-09 09:45 | disposition home or self-care (01) ==
PROVIDERS: PCP Internal Medicine; Visit Provider Urology
PROC: (CPT 64585; principal; 2024-07-09 07:30)
DX: Z45.42 Encounter for adjustment and management of neurostimulator (principal); N39.41 Urge incontinence; Z87.891 Personal history of nicotine dependence; E66.9 Obesity, unspecified; Z68.31 Body mass index [BMI] 31.0-31.9, adult
CPT/HCPCS: 64585; 64590; 99199; C1767; C1778; C1787; J0690; J1100; J1171; J1885; J2250; J2405; J2704; J3010; J7120

== ENCOUNTER 2024-10-25 18:35 | Emergency (ER) | payer OTHER, SELFPAY ==
[2024-10-25 18:35] VITALS: BP 155/110; PULSE 115; RESP 28; TEMP 36.2; O2SAT 99
--- NOTE | 2024-10-25 18:49 | ECG_ITS ---
Test Date: 2024-10-25 18:58:36 Measurements Intervals Moody Rate: 103 P: 58 OH: 148 QRS: -7 QRSD: 83 T: 28 QT: 344 QTc: 451 Interpretive Statements SINUS TACHYCARDIA DELAYED PRECORDIAL R/S TRANSITION BASELINE ARTIFACT- I, II, III, AVR, AVL, AVF, V1-V6 ABNORMAL ECG No previous ECG available for comparison Electronically Signed On 10-25-2024 20:15:27 CDT by Emir Kelsey D.O.
[2024-10-25] MEDS: LORazepam (*CRX) 1 MG TABLET 2 MG PO (18:53)
--- NOTE | 2024-10-25 19:10 | ED_ITS ---
HPI - Anxiety General Chief Complaint: Anxiety Stated Complaint: anxiety Time Seen by Provider: 10/25/24 19:09 Source: patient and EMS Mode of arrival: EMS Limitations: no limitations History of Present Illness HPI narrative: 44 years old white female came to the ED by ambulance complaining of panic attack, stress and anxiety and palpitations intermittent for the last few weeks. Patient denies suicidal or homicidal ideation, she denies any chest pain or fever or chills , history of hypertension and depression Related Data Home Medications ?Medication ?Instructions ?Recorded ?Confirmed ?Last Taken ?Type norethindrone 1 mg-ethin. 1 cap PO DAILY 05/18/20 06/30/24 01/24/21 History estradiol 20 mcg (24)-iron 75 mg (4) capsule (Niki) labetalol 200 mg tablet 200 mg PO Q12H 04/18/22 07/09/24 07/09/24 History simvastatin 10 mg tablet 10 mg PO DAILY 02/02/24 06/30/24 Unknown History alprazolam 0.25 mg tablet 0.25 mg PO TID PRN anxiety 05/06/24 06/30/24 Unknown History Allergies Allergy/AdvReac Type Severity Reaction Status Date / Time alcohol (From Mastisol Allergy Intermediate hives Verified 10/25/24 19:00 Liquid Adhesive) gum mastic (From Mastisol Allergy Intermediate hives Verified 10/25/24 19:00 Liquid Adhesive) methyl salicylate (From Allergy Intermediate hives Verified 10/25/24 19:00 Mastisol Liquid Adhesive) storax (From Mastisol Liquid Allergy Intermediate hives Verified 10/25/24 19:00 Adhesive) Contrast Media Allergy Severe NECK/FACIAL Uncoded 10/25/24 19:00 SWELLING WITH EYE SWELLING CLOSED dermabond Allergy Intermediate hives Uncoded 10/25/24 19:00 Review of Systems Review of Systems: All systems reviewed & are unremarkable except as noted in HPI and below PMFSH Past Medical History Medical History Encounter for postoperative care Bilateral ankle pain Interstitial cystitis Tarsal tunnel syndrome, left lower limb Tarsal tunnel syndrome of right side HTN (hypertension) Rectal urgency Bloating Diarrhea Surgical History Surgical History H/O tubal ligation History of esophagogastroduodenoscopy (EGD) Family History Family History Mother Hypertension Social History Social History Smoking packs per day: 0.5 Smoking cigarettes per day: 10.0 Years smoked: 8 Smoking pack-years: 4.00 Smoking status: Former smoker Tobacco type: cigarettes Second hand tobacco smoke exposure: No Smoking end date: 06/30/10 Additional smoking assessment comments: 1/2 ppd x9 years Alcohol intake: current Drinks per week: 2 Alcohol use details: 2 glasses of wine on weekends Substance use: never Substance use type: does not use Last use: 05/05/2009 Living arrangements: with family Occupation/Education: occupation Gender identity (if verbalized by the patient): Female Sexual Orientation (if Verbalized by the Patient): Straight or Heterosexual Spiritual care concerns: No Exam Narrative: General appearance: Well-developed, well-nourished, hyperventilating, restless, in tears Skin: Normal color Head: Normocephalic, nontraumatic Eyes: Clear conjunctiva ENT: Oropharynx normal, ears normal, nose normal Neck: Supple, nontender Chest and respiratory: Airway patent, no respiratory distress, no accessory muscle use Heart: Regular rate/rhythm Abdomen: Soft, nontender, no organomegaly, quiet bowel sounds Musculoskeletal: Normal range of motion, nontender back Neurologic: Alert and oriented ?3, HORSE EXERCISER is normal as tested, no gross motor deficit Course Vital Signs Vital signs: Vital Signs Temperature 36.2 C L 10/25/24 18:35 Pulse Rate 115 H 10/25/24 18:35 Respiratory Rate 28 H 10/25/24 18:35 Blood Pressure 155/110 H 10/25/24 18:35 Pulse Oximetry 99 10/25/24 18:35 Oxygen Delivery Room Air 10/25/24 18:35 Temperature 36.2 C L 10/25/24 18:35 Pulse Rate 115 H 10/25/24 18:35 Respiratory Rate 28 H 10/25/24 18:35 Blood Pressure 155/110 H 10/25/24 18:35 Pulse Oximetry 99 10/25/24 18:35 Oxygen Delivery Room Air 10/25/24 18:35 MDM - Anxiety MDM Narrative Medical decision making narrative: anxiety like symptoms, palpitation, EKG showed sinus tachy at 103 otherwise within normal limit Differential Diagnosis Differential diagnosis: Likely hyperventilation, panic disorder and acute anxiety ECG Data EKG #1: Attestation: I personally reviewed and interpreted this ECG as follows: ECG completion date: 10/25/24 Ischemic changes: acute STEMI Interpretation: sinus tachycardia at 103 otherwise normal EKG Critical Care Time Critical Care Time Critical Care Time: No Discharge Plan Discharge Clinical Impression: Hyperventilation Patient Disposition: Home Condition: Improved Instructions: Heart Palpitations (DC), Anxiety (ED) Additional Instructions: Return if symptoms are worsening , call your family physician for appointment, take Tylenol as as needed for aches and pain, continue home medications. Patient Language: Indonesian Prescriptions: No Action alprazolam 0.25 mg tablet 0.25 mg PO TID PRN (Reason: anxiety) labetalol 200 mg tablet 200 mg PO Q12H norethindrone-e.estradiol-iron [Taytulla] 1 mg-20 mcg (24)/75 mg (4) capsule 1 cap PO DAILY simvastatin 10 mg tablet 10 mg PO DAILY hydrocodone-acetaminophen 5-325 mg tablet 1 tablet PO Q6H PRN (Reason: pain) Qty: 20 0RF duloxetine 30 mg capsule,delayed release(DR/EC) See Rx Instructions .ROUTE .COMPLEX Qty: 90 2RF Dose Instruction: TAKE 1 CAPSULE BY MOUTH EVERY DAY Rx Instructions: TAKE 1 CAPSULE BY MOUTH EVERY DAY Follow-up/Referrals: Ector Torres MD [Primary Care Provider] - Stand Alone Forms: Work/School Release IP
--- NOTE | 2024-10-25 19:21 | PC.NURSE ---
report to margot jean
[2024-10-25 20:08] VITALS: BP 135/87; PULSE 104; RESP 20; TEMP 36.7; O2SAT 97
== END 2024-10-25 20:15 | disposition home or self-care (01) ==
LOC: CHSED 19:44
PROVIDERS: Emergency Provider Emergency Medicine; PCP Internal Medicine
DX: R06.4 Hyperventilation (principal); I10 Essential (primary) hypertension; Z87.891 Personal history of nicotine dependence
CPT/HCPCS: 93005; 99283; A9270

== ENCOUNTER 2024-11-02 06:11 | Outpatient (CLI) | payer OTHER, SELFPAY ==
--- OUTSIDE RECORDS SUMMARY | 2024-11-02 06:15 | XMS_ITS ---
Author Organization Unknown Medications Medication Instructions Effective Dates (start - stop) Status duloxetine 30 MG Delayed Rel ease Oral Capsule - Completed alprazolam 0.25 MG Oral Tablet 2023-06-21 T00:00:00Z - Completed labetalol hydrochloride 100 MG Oral Tablet - Completed alprazolam 0.25 MG Oral Tablet 2023-01-31 T00:00:00Z - Completed labetalol hydrochloride 100 MG Oral Tablet - Completed alprazolam 0.25 MG Oral Tablet 2023-03-12 T00:00:00Z - Completed duloxetine 30 MG Delayed Rel ease Oral Capsule - Completed hydrochlorothiazide 12.5 MG Oral Capsule - Completed alprazolam 0.25 MG Oral Tablet 2023-11-02 T00:00:00Z - Completed simvastatin 10 MG Oral Tablet 2023-10-20 00:00:00Z - Completed acetaminophen 325 MG / hydro codone bitartrate 7.5 MG Oral Tablet - Complet ed alprazolam 0.25 MG Oral Tablet 2023-07-24 T00:00:00Z - Completed labetalol hydrochloride 100 MG Oral Tablet - Completed alprazolam 0.25 MG Oral Tablet 2023-09-04 T00:00:00Z - Completed lisinopril 40 MG Oral Tablet [id number] 0:00:00Z - Completed lisinopril 40 MG Oral Tablet [id number] 0:00:00Z - Completed lisinopril 40 MG Oral Tablet [id number] 0:00:00Z - Completed alprazolam 0.25 MG Oral Tablet 2023-10-01 T00:00:00Z - Completed lisinopril 40 MG Oral Tablet [id number] 0:00:00Z - Completed hydrochlorothiazide 12.5 MG Oral Capsule - Completed hydrochlorothiazide 12.5 MG Oral Capsule - Completed hydrochlorothiazide 12.5 MG Oral Capsule - Completed lisinopril 40 MG Oral Tablet [id number] 0:00:00Z - Completed simvastatin 10 MG Oral Tablet 2023-08-09 00:00:00Z - Completed hydrochlorothiazide 12.5 MG Oral Capsule - Completed hydrochlorothiazide 12.5 MG Oral Capsule - Completed lisinopril 40 MG Oral Tablet [id number] 0:00:00Z - Completed labetalol hydrochloride 100 MG Oral Tablet - Completed duloxetine 30 MG Delayed Rel ease Oral Capsule - Completed alprazolam 0.25 MG Oral Tablet 2023-05-01 T00:00:00Z - Completed Patient Care team information Name Category Status Period Participants - - Proposed period not known -
--- OUTSIDE RECORDS SUMMARY | 2024-11-02 06:16 | XMS_ITS | Clinical Summary ---
Author Organization [facility] Address [address] [facility] [place] [address] Care Team Providers Care Auger Press Operator Name Role Phone Ector Trores MD Primary Care Provider [phone] [facility]non-owned Affiliates and Associated Physician Practices is amultiple site organization consisting of ambulatory clinics and hospital sitesin [place], [place], [place] and [place]. This disclosure is being madepursuant to the Care Everywhere program and may not contain all information available regarding this patient. Last updated 18.[facility] Allergies No known active allergies Medications * Be aware that medications may not be up to date on this document. Alwaysverify current medications with the patient. naproxen (NAPROSYN) 500 MG tablet Take 500 mg by mouth 2 times daily. Active tramadol (ULTRAM) 50 MG tablet Take 50 mg by mouth every 6 hours as needed for Pain. Active Social History Tobacco Use Types Packs/Day Years Used Date Smoking Tobacco: Never Alcohol Use Standard Drinks/Week Comments Yes 0 (1 standard drink = 0.6 oz pur e alcohol) occasional Comments No Sex and Gender Information Value Date Recorded Sex Assigned at Not on file Legal Sex Female 8:23 AM POLICY VALUE CALCULATOR Gender Identity Not on file Sexual Orientation Not on file Last Filed Vital Signs Vital Sign Reading Time Taken Comments Blood Pressure 108/70 06/26/2009 12:42 PM POLICY VALUE CALCULATOR Pulse 91 06/26/2009 12:42 PM POLICY VALUE CALCULATOR Temperature 36.4 C (97.5 F) 06/26/2009 11:15 AM POLICY VALUE CALCULATOR Respiratory Rate 16 06/26/2009 12:42 PM POLICY VALUE CALCULATOR Oxygen Saturation 100% 06/26/2009 11:15 AM POLICY VALUE CALCULATOR Inhaled Oxygen Concentration - - Weight 61.2 kg (135 lb) 06/26/2009 7:19 AM POLICY VALUE CALCULATOR Height 165.1 cm (5' 5) 06/26/2009 7:19 AM POLICY VALUE CALCULATOR Body Mass Index 22.47 06/26/2009 7:19 AM POLICY VALUE CALCULATOR Plan of Treatment Health Maintenance Due Date Last Done Comments LIPID TESTING 1981 MAMMOGRAM 1981 HIV SCREENING 1996 HEPATITIS C SCREENING 05/12/1999 DTAP/TDAP/TD VACCINES (1 - Tdap) 2000 HEPATITIS B VACCINE (1 of 3 - 19+ 3-dose series) 2000 COVID-19 VACCINE ( - 2023-2 5 season) 2024 DEPRESSION SCREENING 05/05/2024 INFLUENZA VACCINE (Season Ended) 2025 ZOSTER VACCINE (1 of 2) 2031 HIB VACCINE Aged Out No longer eligi ble based on patient's age to complete this topic HPV VACCINE Aged Out No longer eligi ble based on patient's age to complete this topic MENINGOCOCCAL (Group B) VACC INE SHARED DECISION-MAKING Aged Out No longer eligibl e based on patient's age to complete this topic MENINGOCOCCAL GROUPS A/C/Y/W VACCINE Aged Out No longer eligible b ased on patient's age to complete this topic PNEUMOCOCCAL VACCINE Aged Out No long er eligible based on patient's age to complete this topic Insurance Code [employer] Care Teams Auger Press Operator Relationship Specialty Start Date End Date Ector Torres MD PCP - General 06/26/20
[2024-11-02 06:42] LABS: Hematocrit 36.5 % (37.0-47.0); Hemoglobin 12.2 g/dL (12.0-15.0); Immature Granulocyte Percent A 0.6 % (0-0.5); Lymphocytes Absolute Auto 2.04 K/mm3 (0.9-3.2); Mean Corpuscular HGB Conc 33.4 g/dl (32-36); Mean Corpuscular Hemoglobin 33.0 pg (26-34); Mean Corpuscular Volume 98.6 fl (80-100); Nucleated Red Blood Cells Absolute Auto 0.000 K/mm3 (0.0-0.012); Nucleated Red Blood Cells Perc 0.0 % (0.0-0.2); Platelet Count Result 289 k/mm3 (150-375); Red Blood Count 3.70 M/mm3 (4.2-5.4); White Blood Count 5.0 K/mm3 (4.5-10.0)
[2024-11-02 06:55] LABS: Alanine Aminotransferase 19 U/L (6-35); Albumin Level 3.9 g/dL (3.5-5.1); Alkaline Phosphatase 65 U/L (38-126); Anion Gap 12 mmol/L (4-12); Aspartate Amino Transferase 35 U/L (14-36); Bilirubin,Total 0.4 mg/dL (0.2-1.3); Blood Urea Nitrogen 8 mg/dL (7-17); Calcium 9.1 mg/dL (8.4-10.2); Carbon Dioxide 22 mmol/L (22-30); Chloride 107 mmol/L (98-107); Cholesterol 243 mg/dL (0-200); Creatine Kinase 106 U/L (30-135); Estimated Glomerular Filt Rate > 60; Glucose 104 mg/dL (65-110); HDL Direct 53 mg/dL; Potassium 3.4 mmol/L (3.4-5.0); Sodium 141 mmol/L (137-145); Total Protein 7.1 g/dL (6.3-8.2); Triglycerides 450 mg/dL (<150)
[2024-11-02 06:55] LABS: Add Urine Microscopic? YES; Appearance Urine Cloudy (Clear); Glucose Urine UA Negative (Negative); Leukocyte Esterase Ur Negative LEU/UL (Negative); Nitrate Urine Negative (Negative); Non Pathogenic Casts 0-2; Specific Grav Ur 1.018 (1.001-1.035)
[2024-11-02 07:05] LABS: Hemoglobin A1C. 4.8 % (<5.7)
[2024-11-02 07:28] LABS: Thyroid Stimulating Hormone 1.530 uIU/mL (0.465-4.680)
== END 2024-11-02 06:12 | disposition home or self-care (01) ==
LOC: ANHLAB 06:14
PROVIDERS: PCP Internal Medicine; Visit Provider Internal Medicine
DX: Z00.00 Encounter for general adult medical examination without abnormal findings (principal); I10 Essential (primary) hypertension; E78.2 Mixed hyperlipidemia; R73.01 Impaired fasting glucose
CPT/HCPCS: 36415; 80053; 80061; 81001; 82306; 82550; 83036; 84443; 85025

== ENCOUNTER 2024-11-13 12:44 | Outpatient (CLI) | payer OTHER, SELFPAY ==
--- OUTSIDE RECORDS SUMMARY | 2024-11-13 12:49 | XMS_ITS | Encounter Summary ---
Author Organization [facility] Healthcare Address [address] [place] [address] Care Team Providers Care Die Presser Name Role Phone Unavailable Primary Care Provider Unavailabl e Reason for Visit * Diagnostic Imaging (Routine) - Closed Specialty Diagnoses / Procedures Referred By Mireille farias Referred To Contact Procedures Breast Imaging Diagnostic Outside Reference Maribel Kraft NP Phone: tel: fax: Referral ID Status Reason Start Date Expiration Date Visits Re quested Visits Authorized [id number] Closed 04/26/2022 05/26/2023 1 1 Encounter Details Date Type Department Care Team (Late st Contact Info) Description 07/21/2018 Hospital Encounter [facility] [address] [place] [address] [phone] Social History Tobacco Use Types Packs/Day Years [...] CDT) Impressions RAD_M[facility]MO[facility] - 04/26/2022 3:06 PM EXTERNAL GRINDER TOOL These images are for Reference purposes only and have not been reviewed by [facility] Radiology. There will be no report generated by a [facility] Radiologist. Narrative [facility] - 04/26/2022 3:06 PM EXTERNAL GRINDER TOOL EXAMINATION: Images For Reference Purposes Only us Maribel Kraft NP IMG MAMMO PROCEDURES Final Result [facility] documented in this encounter Visit Diagnoses Not on filedocumented in this encounter
--- OUTSIDE RECORDS SUMMARY | 2024-11-13 12:49 | XMS_ITS | Clinical Summary ---
Author Organization [facility] [address] Address [address] [place] [address] Care Team Providers Care Framing And Hanging Name Role Phone Ector Torres MD Primary Care Provider + [phone] Allergies Active Allergy Reactions Criticality Noted Date [...] A M CDT Height 165.1 cm (5' 5) 02/05/2024 8:58 AM CDT Body Mass Index [...] (2 - 2023-2 5 season) 2024 08/10/2020 Breast Cancer Screening-Mammogram 11/26/2024 11/27/2023, 11/14/2022 Influenza Vaccine (Season Ended) 2025 HPV Vaccines Aged Out No longer eligi [...] compared to prior imaging studies performed at [facility] on 2022 and 11/14/2022. The breasts [...] compared to prior imaging studies performed at [facility] on 2022 and 11/14/2022. The breasts [...] Most Recently Relevant to Health Maintenance Insurance [facility] Tax Service and Bookkeeping HMO/PPO Address: [address] [place] [address] [facility] Care Teams Framing And Hanging Relationship Specialty Start Date End Date Ector Torres MD [address] [place] [address] PCP - General Internal Medicine 02/11/22
--- OUTSIDE RECORDS SUMMARY | 2024-11-13 12:49 | XMS_ITS | Referral Summary ---
Author Organization [facility] [address] Address [address] [place] [address] Care Team Providers Care Strap Stitcher Name Role Phone Ector Torres MD Primary Care Provider + [phone] Allergies Active Allergy Reactions Criticality Noted Date [...] compared to prior imaging studies performed at [facility] on 2022 and 11/14/2022. The breasts are [...] compared to prior imaging studies performed at [facility] on 2022 and 11/14/2022. The breasts are [...] Most Recently Relevant to Health Maintenance Insurance [employer] [facility] Care Teams Strap Stitcher Relationship Specialty Start Date End Date Ector Torres MD [address] [place] [address] PCP - General Internal Medicine 02/11/22
--- OUTSIDE RECORDS SUMMARY | 2024-11-13 12:49 | XMS_ITS ---
[...] - Completed lisinopril 40 MG Oral Tablet [id number] 0:00:00Z - Completed lisinopril 40 MG Oral Tablet [id number] 0:00:00Z - Completed lisinopril 40 MG Oral Tablet [id number] 0:00:00Z - Completed alprazolam 0.25 MG Oral Tablet 2023-10-01 T00:00:00Z - Completed lisinopril 40 MG Oral Tablet [id number] 0:00:00Z - Completed hydrochlorothiazide 12.5 MG Oral Capsule - Completed hydrochlorothiazide 12.5 MG Oral Capsule - Completed hydrochlorothiazide 12.5 MG Oral Capsule - Completed lisinopril 40 MG Oral Tablet [id number] 0:00:00Z - Completed simvastatin 10 MG Oral Tablet 2023-08-09 00:00:00Z - Completed hydrochlorothiazide 12.5 MG Oral Capsule - Completed hydrochlorothiazide 12.5 MG Oral Capsule - Completed lisinopril 40 MG Oral Tablet [id number] 0:00:00Z - Completed labetalol hydrochloride 100 MG Oral Tablet - Completed duloxetine 30 MG Delayed Rel ease Oral Capsule - Completed alprazolam 0.25 MG Oral Tablet 2023-05-01 T00:00:00Z - Completed Patient Care team information Name Category Status Period Participants - - Proposed period not known -
--- OUTSIDE RECORDS SUMMARY | 2024-11-13 12:49 | XMS_ITS | Clinical Summary ---
Author Organization [facility] [employer] Address [address] [place] [address] Care Team Providers Care Customer Service Dispatcher Name Role Phone Ector Torres MD Primary Care Provider [phone] Source Comments [facility] [employer],non-owned Affiliates and Associated Physician Practices is amultiple site organization consisting of ambulatory clinics and hospital sitesin [place], [place], [place] and [place]. This disclosure is being madepursuant to the Care Everywhere program and may not contain all information available regarding this patient. Last updated 18.[facility] [employer] Allergies No known active allergies Medications * [...] on file Legal Sex Female 8:23 AM ANALYSIS OR RESEARCH SAFETY INSPECTOR Gender Identity Not on file Sexual Orientation Not on file Last Filed Vital Signs Vital Sign Reading Time Taken Comments Blood Pressure 108/70 06/26/2009 12:42 PM ANALYSIS OR RESEARCH SAFETY INSPECTOR Pulse 91 06/26/2009 12:42 PM ANALYSIS OR RESEARCH SAFETY INSPECTOR Temperature 36.4 C (97.5 F) 06/26/2009 11:15 AM ANALYSIS OR RESEARCH SAFETY INSPECTOR Respiratory Rate 16 06/26/2009 12:42 PM ANALYSIS OR RESEARCH SAFETY INSPECTOR Oxygen Saturation 100% 06/26/2009 11:15 AM ANALYSIS OR RESEARCH SAFETY INSPECTOR Inhaled Oxygen Concentration - - Weight 61.2 kg (135 lb) 06/26/2009 7:19 AM ANALYSIS OR RESEARCH SAFETY INSPECTOR Height 165.1 cm (5' 5) 06/26/2009 7:19 AM ANALYSIS OR RESEARCH SAFETY INSPECTOR Body Mass Index 22.47 06/26/2009 7:19 AM ANALYSIS OR RESEARCH SAFETY INSPECTOR Plan of Treatment Health Maintenance Due Date Last Done Comments LIPID TESTING 1981 MAMMOGRAM 1981 HIV SCREENING 1996 HEPATITIS C SCREENING 05/12/1999 DTAP/TDAP/TD VACCINES (1 - Tdap) 2000 HEPATITIS B VACCINE (1 of 3 - 19+ 3-dose series) 2000 HPV VACCINE (1 - 3-dose SCDM series) 2008 COVID-19 VACCINE ( - 2023-2 5 season) 2024 DEPRESSION SCREENING 05/05/2024 INFLUENZA VACCINE (#1) 2025 ZOSTER VACCINE (1 of 2) 2031 [...] patient's age to complete this topic Insurance [employer] Care Teams Customer Service Dispatcher Relationship Specialty Start Date End Date Ector Torres MD PCP - General 06/26/20
[2024-11-13 14:11] LABS: Thyroid Stimulating Hormone 0.511 uIU/mL (0.465-4.680)
[2024-11-15 10:08] LABS: FSH 15.8 mIU/mL (.)
== END 2024-11-13 12:45 | disposition home or self-care (01) ==
LOC: CHSLAB 12:48
PROVIDERS: PCP Internal Medicine; Visit Provider Obstetrics & Gynecology
DX: Z78.0 Asymptomatic menopausal state (principal)
CPT/HCPCS: 36415; 83001; 84443

== ENCOUNTER 2024-12-06 08:53 | Outpatient (CLI) | payer OTHER, SELFPAY ==
--- OUTSIDE RECORDS SUMMARY | 2024-12-06 09:07 | XMS_ITS | Clinical Summary ---
Author Organization [facility] [address] Address [address] [place] [address] Care Team Providers Care Skin Pass Operator Name Role Phone Ector Torres MD Primary Care Provider + [phone] Allergies Active Allergy Reactions Criticality Noted Date [...] Screening 1999 Regular Well Visit/Exam 18-64 1999 HPV Vaccines (1 - 3-dose SCD M series) 2008 Covid-19 Vaccine (2 - 2023-2 5 season) 2024 08/10/2020 Breast Cancer Screening-Mammogram 11/26/2024 11/27/2023, 11/14/2022 Influenza Vaccine (#1) 2025 Pneumococcal vaccine <65 Aged Out No longer [...] compared to prior imaging studies performed at [facility] on 2022 and 11/14/2022. The breasts are [...] compared to prior imaging studies performed at [facility] on 2022 and 11/14/2022. The breasts are heterogeneously dense, which may obscure small masses. There is no suspicious abnormality in either breast. Impression: There is no mammographic evidence of malignancy. Annual screening mammography is recommended. If supplemental screeningis desired, breast MRI would be recommended in this patient with heterogeneously dense breasts. OVERALL FINAL ASSESSMENT: BI-RADS CATEGORY 1: Negative. Maribel Kraft TWINE REELING MACHINE OPERATOR IMG MAMMO PROCEDURES Final Result from Last 3 Months or Most Recently Relevant to Health Maintenance Insurance [facility] [id number] [facility] Care Teams Skin Pass Operator Relationship Specialty Start Date End Date Ector Torres MD [address] [place], [place] [id number] PCP - General Internal Medicine 02/11/22
--- OUTSIDE RECORDS SUMMARY | 2024-12-06 09:07 | XMS_ITS | Referral Summary ---
Author Organization [facility] [address] Address [address] [place] [address] Care Team Providers Care Typing Section Chief Name Role Phone Ector Torres MD Primary Care Provider + [phone] Allergies Active Allergy Reactions Criticality Noted Date [...] compared to prior imaging studies performed at [facility] on 2022 and 11/14/2022. The breasts are [...] compared to prior imaging studies performed at [facility] on 2022 and 11/14/2022. The breasts are [...] Most Recently Relevant to Health Maintenance Insurance [employer] [facility] [id number] [facility] Care Teams Typing Section Chief Relationship Specialty Start Date End Date Ector Torres MD [address] [place], [place] [id number] PCP - General Internal Medicine 02/11/22
--- OUTSIDE RECORDS SUMMARY | 2024-12-06 09:07 | XMS_ITS | Encounter Summary ---
Author Organization [facility] Address [address] [place] [address] Care Team Providers Care Mapping Supervisor Name Role Phone Unavailable Primary Care Provider Unavailabl e Reason for Visit * Diagnostic Imaging (Routine) - Closed Specialty Diagnoses / Procedures Referred By Mireille farias Referred To Contact Procedures Breast Imaging Diagnostic Outside Reference Maribel Kraft NP Phone: tel: fax: Referral ID Status Reason Start Date Expiration Date Visits Re quested Visits Authorized [id number] Closed 04/26/2022 05/26/2023 1 1 Encounter Details Date Type Department Care Team (Late st Contact Info) Description 07/21/2018 Hospital Encounter [facility] [address] [place] [id number] Social History Tobacco Use Types Packs/Day Years [...] CDT) Impressions RAD_MAMMO_[facility] - 04/26/2022 3:06 PM INSTRUCTOR WARPER These images are for Reference purposes only and have not been reviewed by [facility] Radiology. There will be no report generated by a [facility] Radiologist. Narrative RAD_MAMMO_[facility] - 04/26/2022 3:06 PM INSTRUCTOR WARPER EXAMINATION: Images For Reference Purposes Only us Maribel Kraft NP IMG MAMMO PROCEDURES Final Result RAD_MAMMO_[facility] documented in this encounter Visit Diagnoses Not on filedocumented in this encounter
--- OUTSIDE RECORDS SUMMARY | 2024-12-06 09:07 | XMS_ITS | Clinical Summary ---
Author Organization [facility] Address [address] [address] Care Team Providers Care Speech Pathology Supervisor Name Role Phone Ector Torres MD Primary Care Provider [phone] Source Comments [facility],non-owned Affiliates and Associated Physician Practices is amultiple site organization consisting of ambulatory clinics and hospital sitesin [place], [place], [place] and [place]. This disclosure is being madepursuant to the Care Everywhere program and may not contain all information available regarding this patient. Last updated 18.[facility] Allergies No known active allergies Medications * [...] on file Legal Sex Female 8:23 AM CARPET FINISHING SUPERVISOR Gender Identity Not on file Sexual Orientation Not on file Last Filed Vital Signs Vital Sign Reading Time Taken Comments Blood Pressure 108/70 06/26/2009 12:42 PM CARPET FINISHING SUPERVISOR Pulse 91 06/26/2009 12:42 PM CARPET FINISHING SUPERVISOR Temperature 36.4 C (97.5 F) 06/26/2009 11:15 AM CARPET FINISHING SUPERVISOR Respiratory Rate 16 06/26/2009 12:42 PM CARPET FINISHING SUPERVISOR Oxygen Saturation 100% 06/26/2009 11:15 AM CARPET FINISHING SUPERVISOR Inhaled Oxygen Concentration - - Weight 61.2 kg (135 lb) 06/26/2009 7:19 AM CARPET FINISHING SUPERVISOR Height 165.1 cm (5' 5) 06/26/2009 7:19 AM CARPET FINISHING SUPERVISOR Body Mass Index 22.47 06/26/2009 7:19 AM CARPET FINISHING SUPERVISOR Plan of Treatment Health Maintenance Due Date [...] patient's age to complete this topic Insurance [employer] Care Teams Speech Pathology Supervisor Relationship Specialty Start Date End Date Ector Torres MD PCP - General 06/26/20
[2024-12-06 09:58] LABS: Anion Gap 9 mmol/L (4-12); Blood Urea Nitrogen 10 mg/dL (7-17); Calcium 9.2 mg/dL (8.4-10.2); Carbon Dioxide 28 mmol/L (22-30); Chloride 103 mmol/L (98-107); Estimated Glomerular Filt Rate > 60; Glucose 96 mg/dL (65-110); Osmolality Calculated 289 mOsm/kg (285-295); Potassium 4.6 mmol/L (3.4-5.0); Sodium 140 mmol/L (137-145)
== END 2024-12-06 08:54 | disposition home or self-care (01) ==
PROVIDERS: PCP Internal Medicine; Visit Provider Internal Medicine
DX: E87.6 Hypokalemia (principal)
CPT/HCPCS: 36415; 80048

== ENCOUNTER 2025-02-05 08:13 | Outpatient (CLI) | payer OTHER, SELFPAY ==
[2025-02-05 09:13] LABS: Alanine Aminotransferase 44 U/L (6-35); Albumin Level 4.5 g/dL (3.5-5.1); Alkaline Phosphatase 80 U/L (38-126); Anion Gap 14 mmol/L (4-12); Aspartate Amino Transferase 72 U/L (14-36); Bilirubin,Total 0.7 mg/dL (0.2-1.3); Blood Urea Nitrogen 9 mg/dL (7-17); Calcium 9.6 mg/dL (8.4-10.2); Carbon Dioxide 28 mmol/L (22-30); Chloride 101 mmol/L (98-107); Cholesterol 225 mg/dL (0-200); Creatine Kinase 125 U/L (30-135); Estimated Glomerular Filt Rate > 60; Glucose 102 mg/dL (65-110); HDL Direct 57 mg/dL; Osmolality Calculated 294 mOsm/kg (285-295); Potassium 3.9 mmol/L (3.4-5.0); Sodium 143 mmol/L (137-145); Total Protein 8.2 g/dL (6.3-8.2); Triglycerides 367 mg/dL (<150)
== END 2025-02-05 08:14 | disposition home or self-care (01) ==
LOC: CHSLAB 08:15
PROVIDERS: PCP Internal Medicine; Visit Provider Internal Medicine
DX: E78.2 Mixed hyperlipidemia (principal)
CPT/HCPCS: 36415; 80053; 80061; 82550

== ENCOUNTER 2025-03-10 07:40 | Outpatient (CLI) | payer OTHER, SELFPAY ==
--- OUTSIDE RECORDS SUMMARY | 2018-07-20 23:00 | XMS_ITS | Encounter Summary ---
Author Organization [facility] Healthcare Address [address] [place] [address] Care Team Providers Care Mask Inspector Name Role Phone Unavailable Primary Care Provider Unavailabl e Reason for Visit * Diagnostic Imaging (Routine) - Closed Specialty Diagnoses / Procedures Referred By Mireille farias Referred To Contact Procedures Breast Imaging Diagnostic Outside Reference Maribel Kraft NP Phone: tel: fax: Referral ID Status Reason Start Date Expiration Date Visits Re quested Visits Authorized [id number] Closed 04/26/2022 05/26/2023 1 1 Encounter Details Date Type Department Care Team (Late st Contact Info) Description 07/21/2018 Hospital Encounter [facility]) [address] [place] [phone] Social History Tobacco Use Types Packs/Day Years [...] CDT) Impressions [facility] - 04/26/2022 3:06 PM BOOK EDITOR These images are for Reference purposes only and have not been reviewed by [facility] Radiology. There will be no report generated by a [facility] Radiologist. Narrative [facility] - 04/26/2022 3:06 PM BOOK EDITOR EXAMINATION: Images For Reference Purposes Only us Maribel Kraft NP IMG MAMMO PROCEDURES Final Result [facility] documented in this encounter Visit Diagnoses Not on filedocumented in this encounter
--- NOTE | ~2025-03-10 | US_ITS ---
US right upper quadrant Indication: ELEVATED LIVER ENZYMES Comparison: None Technique: De Luna-scale and color Doppler images were obtained. Findings: LIVER: Increased echogenicity of the liver. Within the liver right lobe there are cystic lesions the largest 3 x 3.2 cm which appears complex. . GALLBLADDER/BILIARY: Unremarkable.No cholelithiais, wall thickening or pericholecystic fluid. No biliary dilatation. CBD 5 mm. [place] sign negative. PANCREAS: Unremarkable. Right Kidney: The right kidney was not imaged. Impression: Hepatic steatosis with nonspecific simple and complex appearing liver cysts Reviewed, dictated and finalized at location P. MATING MANAGER Impression: Hepatic steatosis with nonspecific simple and complex appearing liver cysts
[2025-03-10 07:55] LABS: Hematocrit 39.6 % (35.0-49.0); Hemoglobin 13.1 g/dL (12.0-15.0); Mean Corpuscular HGB Conc 33.1 g/dL (32-36); Mean Corpuscular Hemoglobin 32.5 pg (27.0-31.0); Mean Corpuscular Volume 98.3 fL (78.0-102.0); Platelet Count Result 323 K/mm3 (150-420); Red Blood Count 4.03 M/mm3 (4.20-5.40); White Blood Count 5.2 K/mm3 (4.8-10.8)
[2025-03-10 08:42] LABS: Iron 65 ug/dL (37-170)
[2025-03-10 09:05] LABS: GGT 118.8 U/L (12-43)
[2025-03-10 09:11] LABS: Ferritin 89.80 ng/mL (6.24-137)
[2025-03-10 14:20] LABS: CRP 0.6 mg/dL (<1.0)
--- OUTSIDE RECORDS SUMMARY | 2025-03-10 16:34 | XMS_ITS | Clinical Summary ---
Author Organization [facility] [address] Address [address] [place] [address] Care Team Providers Care Preforming Machine Operator Name Role Phone Ector Torres MD Primary Care Provider + [phone] Allergies Active Allergy Reactions Criticality Noted Date Comments Iodinated Contrast Media Swelling Medium 03/22/2022 Facial swelling Medications norethindrone-e .estradioL-iron (ESTROSTEP FE) 1-20(5)/1-30(7) /1mg-35mcg (9) tablet Take 1 tablet by mouth daily Fcotulla Active cholestyramine (QUESTRAN) 4 gram powder 03/15/2022 [...] effects 03/22/2022 Chronic fatigue 03/22/2022 Palpitations 03/22/2022 Encounters Date Type Department Care Team Description 01/05/2025 9:46 AM CDT - 01/05/2025 11:59 PM CDT Hospital Encounter [facility] Breast [facility] [address] [place], [place] [id number] Screening mammogram, encounter for Discharge Disposition: Discharge to home or self care from Last 3 Months Surgical History Surgery Date Site/Laterality Comments TUBAL LIGATION FOOT SURGERY Bilateral Medical History Medical History Date Comments Hypertension Interstitial cystitis Bladder problem Family History Medical History Relation Name Comments No Known Problems Father Breast cancer Maternal cousin Sruthi Hypertension Mother Ovarian cancer Neg Hx Pancreatic cancer Neg Hx Prostate cancer Neg Hx Relation Name Status Comments Father Alive Maternal cousin Sruthi Mother Alive Social History Tobacco Use Types Packs/Day Years Used Date Smoking Tobacco: Former Cigarettes Q uit: 2009 Tobacco Cessation:Counseling Given: Not Answered Comments No Sex and Gender Information Value Date Recorded Sex Assigned at Not on file Legal Sex Female 4:05 PM CDT Gender Identity Not on file Sexual Orientation Not on file Obstetrics History Para Term AB IAB SAB Ectopic Multiple Livin g Live Births 1 1 Date Outcome GA Total Labor Labor/2nd/3rd Weight Sex Type Anes PTL Jennifer A1 A5 Name Clin Last Filed Vital Signs Vital Sign Reading Time Taken Comments Blood Pressure 118/82 02/05/2024 8:58 AM CDT Pulse 110 02/05/2024 8:58 AM CDT Temperature - - Respiratory Rate - - Oxygen Saturation 98% 02/05/2024 8:58 AM CDT Inhaled Oxygen Concentration - - Weight 77.1 kg (170 lb) 01/05/2025 10:07 AM CDT Height 165.1 cm (5' 5) 01/05/2025 10:07 AM CDT Body Mass Index 28.29 01/05/2025 10:07 AM CDT Plan of Treatment Health Maintenance Due Date Last Done Comments Cervical Cancer Screening 1981 Depression Screening 1981 Hepatitis C Screening 1981 DTaP/Tdap/Td Vaccine (1 - Tdap) 1992 Varicella Vaccines (1 of 2 - 13+ 2-dose series) 1994 Hepatitis B Screening 1999 Regular Well Visit/Exam 18-64 1999 HPV Vaccines (1 - 3-dose SCD M series) 2008 Covid-19 Vaccine (2 - 2024-2 6 season) 2025 08/10/2020 Influenza Vaccine (#1) 2025 02/20/2022 Breast Cancer Screening-Mammogram 01/05/2026 01/05/2025, 11/27/2023, 11/14/2022 Pneumococcal vaccine <65 Aged Out No longer eligible based on patient's age to complete this topic Procedures Procedure Name Priority Date/Time Associated Diagnosis Comments SCREENING MAMMOGRAM BILATERAL W MARTIN Schedule Routine, Read Routine (OP Routine) 01/05/2025 10:16 AM CDT Screening mammogram, encounter for from Last 3 Months Results * Screening Mammogram Bilateral W Martin (01/05/2025 10:16 AM CDT) Anatomical Region Laterality Modality Breast Bilateral Mammography Impressions 01/06/2025 5:40 PM CDT Bilateral No evidence of malignancy in either breast. OVERALL BI-RADS FINAL ASSESSMENT: 1 - Negative RECOMMENDATION: Recommend bilateral annual screening mammography. If supplemental screening is desired for heterogeneously dense breast tissue, consider breast MRI every 1-2 years. If breast MRI cannot be performed, contrast-enhanced mammography is an alternative. Narrative 01/06/2025 5:40 PM CDT EXAMINATION: Screening Mammogram Bilateral W Martin: 01/05/2025 COMPARISON: Relevant prior studies available at the time of interpretation were reviewed, including the most recent mammogram on: 11/27/2023. TECHNIQUE: Mammography was performed with 2D and 3D digital breast tomosynthesis (DBT) images. CAD was utilized. BREAST PARENCHYMAL COMPOSITION: The breasts are heterogeneously dense, which may obscure small masses. FINDINGS: Bilateral There is no suspicious mass, calcification, or architectural distortion in either breast. us Self Screening Mammogram IMG MAMMO PROCEDURES Fi nal Result from Last 3 Months Insurance [facility] [employer] [facility] Care Teams Preforming Machine Operator Relationship Specialty Start Date End Date Ector Torres MD [address] [place] [id number] PCP - General Internal Medicine 02/11/22
--- OUTSIDE RECORDS SUMMARY | 2025-03-10 16:34 | XMS_ITS | Clinical Summary ---
Author Organization [facility] [employer] Address [address] [place] [address] Care Team Providers Care Note Specialist Name Role Phone Ector Torres MD Primary Care Provider [phone] Source Comments [facility] [employer],non-owned Affiliates and Associated Physician Practices is amultiple site organization consisting of ambulatory clinics and hospital sitesin [place], [place], [place] and [place]. This disclosure is being madepursuant to the Care Everywhere program and may not contain all information available regarding this patient. Last updated 18.[facility] [employer] Allergies No known active allergies Medications * [...] on file Legal Sex Female 8:23 AM GRAPHICS SOFTWARE ENGINEER Gender Identity Not on file Sexual Orientation Not on file Last Filed Vital Signs Vital Sign Reading Time Taken Comments Blood Pressure 108/70 06/26/2009 12:42 PM GRAPHICS SOFTWARE ENGINEER Pulse 91 06/26/2009 12:42 PM GRAPHICS SOFTWARE ENGINEER Temperature 36.4 C (97.5 F) 06/26/2009 11:15 AM GRAPHICS SOFTWARE ENGINEER Respiratory Rate 16 06/26/2009 12:42 PM GRAPHICS SOFTWARE ENGINEER Oxygen Saturation 100% 06/26/2009 11:15 AM GRAPHICS SOFTWARE ENGINEER Inhaled Oxygen Concentration - - Weight 61.2 kg (135 lb) 06/26/2009 7:19 AM GRAPHICS SOFTWARE ENGINEER Height 165.1 cm (5' 5) 06/26/2009 7:19 AM GRAPHICS SOFTWARE ENGINEER Body Mass Index 22.47 06/26/2009 7:19 AM GRAPHICS SOFTWARE ENGINEER Plan of Treatment Health Maintenance Due Date Last Done Comments LIPID TESTING 1981 MAMMOGRAM 1981 HIV SCREENING 1996 HEPATITIS C SCREENING 05/12/1999 DTAP/TDAP/TD VACCINES (1 - Tdap) 2000 HEPATITIS B VACCINE (1 of 3 - 19+ 3-dose series) 2000 HPV VACCINE (1 - 3-dose SCDM series) 2008 DEPRESSION SCREENING 05/05/2024 COVID-19 VACCINE (1 - 2023-2 5 season) 2025 INFLUENZA VACCINE (#1) 2025 ZOSTER VACCINE (1 [...] patient's age to complete this topic Insurance [employer] Care Teams Note Specialist Relationship Specialty Start Date End Date Ector Torres MD PCP - General 06/26/20
[2025-03-11 16:08] LABS: ANA by IFA Rfx Titer/Pattern Negative (.)
== END 2025-03-10 07:41 | disposition home or self-care (01) ==
LOC: CHSIMG 07:42
PROVIDERS: PCP Internal Medicine; Visit Provider Internal Medicine
DX: R74.01 Elevation of levels of liver transaminase levels (principal); K76.0 Fatty (change of) liver, not elsewhere classified; K76.89 Other specified diseases of liver
CPT/HCPCS: 36415; 76705; 82390; 82728; 82977; 83540; 85027; 85652; 86015; 86038; 86140; 86803

== ENCOUNTER 2025-04-19 06:58 | Emergency (ER) | payer OTHER, SELFPAY ==
--- OUTSIDE RECORDS SUMMARY | 2018-07-20 23:00 | XMS_ITS | Encounter Summary ---
Author Organization [facility] Healthcare Address [address] [place] [address] Care Team Providers Care Paver Name Role Phone Unavailable Primary Care Provider Unavailabl e Reason for Visit * Diagnostic Imaging (Routine) - Closed Specialty Diagnoses / Procedures Referred By Mireille farias Referred To Contact Procedures Breast Imaging Diagnostic Outside Reference Maribel Kraft NP Phone: tel: fax: Referral ID Status Reason Start Date Expiration Date Visits Re quested Visits Authorized [id number] Closed 04/26/2022 05/26/2023 1 1 Encounter Details Date Type Department Care Team (Late st Contact Info) Description 07/21/2018 Hospital Encounter [facility] [place], [place] [id number] Social History Tobacco Use Types Packs/Day Years Used Date Smoking Tobacco: Former Cigarettes Q uit: 2010 Comments No Sex and Gender Information Value Date Recorded Sex Assigned at Not on file Legal Sex Female 4:05 PM CDT Gender Identity Not on file Sexual Orientation Not on file documented as of this encounter Functional Status * BP Location Answer Date of Assessment Author Right arm 02/05/2024 8:58 AM CDT Elena Linder MA * BP Location Answer Date of Assessment Author Right arm 02/05/2024 8:58 AM CDT Elena Linder MA documented as of this encounter Plan of Treatment Not on file documented as of this encounter Procedures Procedure Name Priority Date/Time Associated Diagnosis Comments BREAST IMAGING MG DIAGNOSTIC OUTSIDE REFERENCE Routine 07/21/2018 12:00 AM CDT documented in this encounter Results * Breast Imaging Diagnostic Outside Reference (07/21/2018 12:00 AM CDT) Impressions [facility] - 04/26/2022 3:06 PM FINANCIAL RETIREMENT PLAN SPECIALIST These images are for Reference purposes only and have not been reviewed by [facility] Radiology. There will be no report generated by a [facility] Radiologist. Narrative [facility] - 04/26/2022 3:06 PM FINANCIAL RETIREMENT PLAN SPECIALIST EXAMINATION: Images For Reference Purposes Only us Maribel Kraft NP IMG MAMMO PROCEDURES Final Result [facility] documented in this encounter Visit Diagnoses Not on filedocumented in this encounter
--- OUTSIDE RECORDS SUMMARY | 2018-07-20 23:00 | XMS_ITS | Encounter Summary ---
Author Organization [facility] Healthcare Address [address] [place] [address] Care Team Providers Care Quarry Boss Name Role Phone Unavailable Primary Care Provider Unavailabl e Reason for Visit * Diagnostic Imaging (Routine) - Closed Specialty Diagnoses / Procedures Referred By Mireille farias Referred To Contact Procedures Breast Imaging Diagnostic Outside Reference aMribel Kraft NP Phone: tel: fax: Referral ID Status Reason Start Date Expiration Date Visits Re quested Visits Authorized [id number] Closed 04/26/2022 05/26/2023 1 1 Encounter Details Date Type Department Care Team (Late st Contact Info) Description 07/21/2018 Hospital Encounter [facility]) [facility] [place], [place] [id number] Social History Tobacco Use Types Packs/Day Years [...] CDT) Impressions [facility] - 04/26/2022 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 Radiology. There will be no report generated by a [facility] Radiologist. Narrative [facility] - 04/26/2022 3:06 PM SHAPING MACHINE TENDER EXAMINATION: Images For Reference Purposes Only us Maribel Kraft NP IMG MAMMO PROCEDURES Final Result [facility] documented in this encounter Visit Diagnoses Not on filedocumented in this encounter
[2025-04-19] VITALS (13 sets, daily range): BP systolic 98–123; BP diastolic 60–87; PULSE 82–90; RESP 15–20; TEMP 36.8; O2SAT 96–100
--- NOTE | ~2025-04-19 | XR_ITS ---
EXAMINATION: XR chest 2V DATE: 04/19/2025 07:55 INDICATION: Chest pain TECHNIQUE: Frontal and lateral views of the chest were obtained. COMPARISON: 01/24/2022 FINDINGS: Minimal scarring or atelectatic changes in the right lung base. The lungs are otherwise clear with no consolidation effusion or pneumothorax or subphrenic free air seen. Heart size normal. Bones appear intact. IMPRESSION: 1. Minimal atelectatic and/or scarring changes in the right lung base. Otherwise no focal acute process. Reviewed, dictated and finalized at location A. NIGHT IMPRESSION: 1. Minimal atelectatic and/or scarring changes in the right lung base. Otherwis e no focal acute process.
--- OUTSIDE RECORDS SUMMARY | 2025-04-19 07:00 | XMS_ITS | Clinical Summary ---
Author Organization [facility] [address] Address [address] [place] [address] Care Team Providers Care Senior Asic Engineer Name Role Phone Ector Torres MD Primary Care Provider + [phone] Allergies Active Allergy Reactions Criticality Noted Date [...] 3-dose SCD M series) 2008 Covid-19 Vaccine (2024-2 6 season) 2025 08/10/2020 Influenza Vaccine (#1) 2025 02/20/2022 Breast Cancer Screening-Mammogram 01/05/2026 01/05/2025, 11/27/2023, 11/14/2022 Pneumococcal vaccine <65 Aged Out No longer eligible based on patient's age to complete this topic Procedures Procedure Name Priority Date/Time Associated Diagnosis Comments SCREENING MAMMOGRAM BILATERAL W MARTIN Schedule Routine, Read Routine (OP Routine) 01/05/2025 10:16 AM CDT Screening mammogram, encounter for from Last 3 Months or Most Recently Relevant to Health Maintenance Results * Screening Mammogram Bilateral W Martin [...] Fi nal Result from Last 3 Months or Most Recently Relevant to Health Maintenance Insurance [facility] [employer] [facility] Care Teams Senior Asic Engineer Relationship Specialty Start Date End Date Ector Torres MD [address] [place] [address] PCP - General Internal Medicine 02/11/22
--- NOTE | 2025-04-19 07:06 | ECG_ITS ---
Test Date: 2025-04-19 07:30:01 Measurements Intervals [place] Rate: 78 P: 160 DC: 277 QRS: -16 QRSD: 89 T: 1 QT: 389 QTc: 443 Interpretive Statements SINUS RHYTHM DELAYED PRECORDIAL R/S TRANSITION BORDERLINE T WAVE ABNORMALITY- INFERIOR LEADS BASELINE ARTIFACT- II, III, AVR, AVL, AVF BORDERLINE ECG Compared to ECG 10/25/2024 18:58:36 HEART RATE HAS DECREASED Electronically Signed On 04-19-2025 08:15:38 IT COMPLIANCE MANAGER by Emir Kelsey D.O.
[2025-04-19 07:26] LABS: Hematocrit 38.1 % (37.0-47.0); Hemoglobin 13.2 g/dL (12.0-15.0); Immature Granulocyte Percent A 0.8 % (0-0.5); Lymphocytes Absolute Auto 1.52 K/mm3 (0.9-3.2); Mean Corpuscular HGB Conc 34.6 g/dl (32-36); Mean Corpuscular Hemoglobin 32.8 pg (26-34); Mean Corpuscular Volume 94.5 fl (80-100); Nucleated Red Blood Cells Absolute Auto 0.000 K/mm3 (0.0-0.012); Nucleated Red Blood Cells Perc 0.0 % (0.0-0.2); Platelet Count Result 296 k/mm3 (150-375); Red Blood Count 4.03 M/mm3 (4.2-5.4); White Blood Count 4.8 K/mm3 (4.5-10.0)
[2025-04-19 07:38] LABS: INR 1.0; Prothrombin Time 13.1 Seconds (11.1-14.7)
[2025-04-19 07:39] LABS: Partial Thromboplastin Time 26.5 Seconds (22.3-36.8)
[2025-04-19 07:40] LABS: Alanine Aminotransferase 110 U/L (6-35); Albumin Level 4.7 g/dL (3.5-5.1); Alkaline Phosphatase 79 U/L (38-126); Anion Gap 11 mmol/L (4-12); Aspartate Amino Transferase 134 U/L (14-36); Bilirubin,Total 0.6 mg/dL (0.2-1.3); Blood Urea Nitrogen 9 mg/dL (7-17); Calcium 9.7 mg/dL (8.4-10.2); Carbon Dioxide 24 mmol/L (22-30); Chloride 100 mmol/L (98-107); Estimated CRCL calculation 98 ml/min; Estimated Glomerular Filt Rate > 60; Glucose 113 mg/dL (65-110); Lipase 95 U/L (23-300); Potassium 3.5 mmol/L (3.4-5.0); Sodium 135 mmol/L (137-145); Total Protein 8.2 g/dL (6.3-8.2)
[2025-04-19 07:51] LABS: Troponin I 0.018 ng/mL (0.000-0.034)
[2025-04-19] MEDS: LORazepam (*CRX) 1 MG TABLET PO (08:05)
--- OUTSIDE RECORDS SUMMARY | 2025-04-19 08:20 | XMS_ITS | Clinical Summary ---
Author Organization [facility] Address [address] [place] [address] Care Team Providers Care Wheel Presser Name Role Phone Ector Torres MD Primary Care Provider [phone] Source Comments [facility],non-owned Affiliates and Associated Physician Practices is amultiple site organization consisting of ambulatory clinics and hospital sitesin [place], [place], [place] and [place]. This disclosure is being madepursuant to the Care Everywhere program and may not contain all information available regarding this patient. Last updated 18.[facility] Allergies No known active allergies Medications * [...] on file Legal Sex Female 8:23 AM CARD MAKER Gender Identity Not on file Sexual Orientation Not on file Last Filed Vital Signs Vital Sign Reading Time Taken Comments Blood Pressure 108/70 06/26/2009 12:42 PM CARD MAKER Pulse 91 06/26/2009 12:42 PM CARD MAKER Temperature 36.4 C (97.5 F) 06/26/2009 11:15 AM CARD MAKER Respiratory Rate 16 06/26/2009 12:42 PM CARD MAKER Oxygen Saturation 100% 06/26/2009 11:15 AM CARD MAKER Inhaled Oxygen Concentration - - Weight 61.2 kg (135 lb) 06/26/2009 7:19 AM CARD MAKER Height 165.1 cm (5' 5) 06/26/2009 7:19 AM CARD MAKER Body Mass Index 22.47 06/26/2009 7:19 AM CARD MAKER Plan of Treatment Health Maintenance Due Date Last Done Comments LIPID TESTING 1981 MAMMOGRAM 1981 HIV SCREENING 1996 HEPATITIS C SCREENING 05/12/1999 DTAP/TDAP/TD VACCINES (1 - Tdap) 2000 HEPATITIS B VACCINE (1 of 3 - 19+ 3-dose series) 2000 HPV VACCINE (1 - 3-dose SCDM series) 2008 DEPRESSION SCREENING 05/05/2024 COVID-19 VACCINE (1 - 2024-2 6 season) 2025 INFLUENZA VACCINE (#1) 2025 ZOSTER [...] patient's age to complete this topic Insurance [employer] Care Teams Wheel Presser Relationship Specialty Start Date End Date Ector Torres MD PCP - General 06/26/20
--- OUTSIDE RECORDS SUMMARY | 2025-04-19 08:20 | XMS_ITS | Clinical Summary ---
Author Organization [facility] [address] Address [address] [place] [address] Care Team Providers Care Therapist Speech Name Role Phone Ector Torres MD Primary Care Provider + [phone] Allergies Active Allergy Reactions Criticality Noted Date [...] Most Recently Relevant to Health Maintenance Insurance [facility] [employer] [facility] Care Teams Therapist Speech Relationship Specialty Start Date End Date Ector Torres MD [address] [place] [address] PCP - General Internal Medicine 02/11/22
--- NOTE | 2025-04-19 08:46 | ED.CHESTPAIN ---
HPI - Chest Pain General Chief Complaint: Chest Pain Stated Complaint: Chest pain Time Seen by Provider: 04/19/25 07:06 History of Present Illness HPI narrative: Patient presenting here with chest tightness, feels like she can not get a full breath, started around 3 this morning, not had symptoms like this before, does have a history of anxiety, has not usually had panic attacks. Related Data Home Medications ?Medication ?Instructions ?Recorded ?Confirmed ?Last Taken ?Type norethindrone 1 mg-ethin. 1 cap PO DAILY 05/18/20 06/30/24 01/24/21 History estradiol 20 mcg (24)-iron 75 mg (4) [facility] labetalol 200 mg tablet 200 mg PO Q12H 04/18/22 07/09/24 07/09/24 History simvastatin 10 mg tablet 10 mg PO DAILY 02/02/24 06/30/24 Unknown History alprazolam 0.25 mg tablet 0.25 mg PO TID PRN anxiety 05/06/24 06/30/24 Unknown History Allergies Allergy/AdvReac Type Severity Reaction Status Date / Time alcohol (From Mastisol Allergy Intermediate hives Verified 04/19/25 06:58 Liquid Adhesive) gum mastic (From Mastisol Allergy Intermediate hives Verified 04/19/25 06:58 Liquid Adhesive) methyl salicylate (From Allergy Intermediate hives Verified 04/19/25 06:58 Mastisol Liquid Adhesive) storax (From Mastisol Liquid Allergy Intermediate hives Verified 04/19/25 06:58 Adhesive) Contrast Media Allergy Severe NECK/FACIAL Uncoded 10/25/24 19:00 SWELLING WITH EYE SWELLING CLOSED dermabond Allergy Intermediate hives Uncoded 10/25/24 19:00 Review of Systems Review of Systems: All systems reviewed & are unremarkable except as noted in HPI and below PMFSH Past Medical History Medical History Encounter for postoperative care Bilateral ankle pain Interstitial cystitis Tarsal tunnel syndrome, left lower limb Tarsal tunnel syndrome of right side HTN (hypertension) Rectal urgency Bloating Diarrhea Surgical History Surgical History H/O tubal ligation History of esophagogastroduodenoscopy (EGD) Family History Family History Mother Hypertension Social History Social History Smoking packs per day: 0.5 Smoking cigarettes per day: 10.0 Years smoked: 8 Smoking pack-years: 4.00 Smoking status: Former smoker Tobacco type: cigarettes Second hand tobacco smoke exposure: No Smoking end date: 06/30/10 Additional smoking assessment comments: 1/2 ppd x9 years Alcohol intake: current Drinks per week: 2 Alcohol use details: 2 glasses of wine on weekends Substance use: never Substance use type: does not use Last use: 05/05/2009 Living arrangements: with family Occupation/Education: occupation Gender identity (if verbalized by the patient): Female Sexual Orientation (if Verbalized by the Patient): Straight or Heterosexual Spiritual care concerns: No Exam Narrative: EXAMINATION OF ORGAN SYSTEMS/BODY AREAS: Constitutional: Vital signs per nursing GENERAL: Appears extremely anxious HEAD: Normal with no signs of head trauma. EYES: EOMI, conjunctiva normal ENT: Hearing grossly intact LUNGS: Clear to auscultation bilaterally HEART: Regular rate and rhythm ABD: Soft, nontender to palpation EXT: Normal range of motion SKIN: No rashes or lesions. NEURO: Alert. No gross focal sensory or strength deficits. PSYCH: Anxious affect Course Vital Signs Vital signs: Vital Signs Temperature 98.2 F 04/19/25 07:02 Pulse Rate 89 04/19/25 07:02 Respiratory Rate 18 04/19/25 07:02 Blood Pressure 123/87 04/19/25 07:02 Pulse Oximetry 100 04/19/25 07:02 Temperature 98.2 F 04/19/25 07:02 Pulse Rate 88 04/19/25 09:46 Respiratory Rate 17 04/19/25 09:46 Blood Pressure 98/60 L 04/19/25 09:46 Pulse Oximetry 99 04/19/25 09:46 Oxygen Delivery Room Air 04/19/25 07:25 [facility] Narrative Medical decision making narrative: 44F presenting with chest pain. EKG done in triage negative for acute ischemic changes. Cardiac workup is initiated. She is well-appearing here but very anxious appearing, clear lungs, no leg swelling or tenderness. EKG: Performed in triage and interpreted by me. Normal sinus rhythm. Rate 78. Normal axis. OK normal. QRS duration normal. QTc normal. No pathologic Q waves. No ST segment elevation or depression to suggest acute ischemia. No RV strain pattern. HEART score is 0 with no acute ischemic changes on EKG and negative troponin making ACS unlikely. Wells low risk with negative PERC making PE unlikely. Presentation not consistent with dissection or aneurysm without radiation of pain or pulse deficits. CXR negative for mediastinal widening. No abdominal pain or signs of sepsis that would be concerning for esophageal perforation or mediastinitis. No cardiomegaly or JVD to suggest pericardial effusion/tamponade. EKG - 12-Lead: Performed at 0730. Interpreted by me. Sinus rhythm. Rate 84. Normal axis. OK-interval normal. QRS duration normal. QTc normal. No ST segment elevation or depression. T-wave normal. Impression: No EKG evidence of acute ischemia or dysrhythmia. Repeat troponin is still negative. I do suspect likely panic attack. I will provide follow-up information for social security benefits interviewer. On repeat evaluation just prior to discharge, the patient is no acute distress. I had a long discussion with the patient and with shared decision making, she is comfortable with outpatient management. She was given clear return instructions by myself in person as well as on discharge paperwork. ] Differential Diagnosis Differential Diagnosis: ACS, pneumonia, panic attack, PE, etc. Lab Data 04/19/25 07:20 04/19/25 07:20 Labs: Lab Results 04/19/25 04/19/25 Range/Units 07:20 09:59 WBC 4.8 (4.5-10.0) K/mm3 RBC 4.03 L (4.2-5.4) M/mm3 Hgb 13.2 (12.0-15.0) g/dL Hct 38.1 (37.0-47.0) % MCV 94.5 (80-100) fl MCH 32.8 (26-34) pg MCHC 34.6 (32-36) g/dl RDW 13.6 (11.5-14.5) % Plt Count 296 (150-375) k/mm3 MPV 9.3 (7.4-10.4) fl Immature Gran % (Auto) 0.8 H (0-0.5) % Neut % (Auto) 52.5 (45.5-73.1) % Lymph % (Auto) 31.7 (18.3-44.2) % [place] % (Auto) 11.1 H (2.6-8.5) % Eos % (Auto) 3.1 (0-4.4) % Baso % (Auto) 0.8 (0.2-1.2) % Lymph # (Auto) 1.52 (0.9-3.2) K/mm3 [place] # (Auto) 0.5 (0.1-0.6) K/mm3 Eos # (Auto) 0.2 (0-0.3) K/mm3 Baso # (Auto) 0.0 (0.0-0.1) K/mm3 Abs Immat Gran (auto) 0.04 H (0.00-0.031) K/mm3 Absolute Neuts (auto) 2.5 (1.3-6.7) K/mm3 Absolute Nucleated RBC 0.000 (0.0-0.012) K/mm3 Nucleated RBC % 0.0 (0.0-0.2) % PT 13.1 (11.1-14.7) Seconds INR 1.0 APTT 26.5 (22.3-36.8) Seconds Sodium 135 L (137-145) mmol/L Potassium 3.5 (3.4-5.0) mmol/L Chloride 100 (98-107) mmol/L Carbon Dioxide 24 (22-30) mmol/L Anion Gap 11 (4-12) mmol/L BUN 9 (7-17) mg/dL Creatinine 0.65 L (0.7-1.0) mg/dL Estim Creat Clear Calc 98 ml/min Estimated GFR > 60 (59 - ) Glucose 113 H (65-110) mg/dL Calcium 9.7 (8.4-10.2) mg/dL Total Bilirubin 0.6 (0.2-1.3) mg/dL AST 134 H (14-36) U/L ALT 110 H (6-35) U/L Alkaline Phosphatase 79 (38-126) U/L Troponin I 0.018 0.012 D (0.000-0.034) ng/mL Total Protein 8.2 (6.3-8.2) g/dL Albumin 4.7 (3.5-5.1) g/dL Lipase 95 (23-300) U/L Imaging Data Radiologist's impression: ITS Impressions Chest X-Ray 04/19/25 07:58 IMPRESSION: 1. Minimal atelectatic and/or scarring changes in the right lung base. Otherwise no focal acute process. Discharge Plan Discharge Clinical Impression: Chest pain Patient Disposition: Home Condition: Stable Instructions: Chest Pain (ED) Additional Instructions: Your labs and imaging today were reassuring, other than your liver enzymes being slightly elevated. Please follow-up with your primary care doctor and social security benefits interviewer. You can return to the ER for any further issues. Patient Language: Divehi Prescriptions: No Action alprazolam 0.25 mg tablet 0.25 mg PO TID PRN (Reason: anxiety) labetalol 200 mg tablet 200 mg PO Q12H norethindrone-e.estradiol-iron [[place]] 1 mg-20 mcg (24)/75 mg (4) capsule 1 cap PO DAILY simvastatin 10 mg tablet 10 mg PO DAILY hydrocodone-acetaminophen 5-325 mg tablet 1 tablet PO Q6H PRN (Reason: pain) Qty: 20 0RF duloxetine 30 mg capsule,delayed release(DR/EC) See Rx Instructions .ROUTE .COMPLEX Qty: 90 2RF Dose Instruction: TAKE 1 CAPSULE BY MOUTH EVERY DAY Rx Instructions: TAKE 1 CAPSULE BY MOUTH EVERY DAY Follow-up/Referrals: Ector Torres MD [Primary Care Provider, Internal Medicine] Delmy Flynn MD [Physician, Cardiology] - 2 Days
--- NOTE | 2025-04-19 09:55 | ECG_ITS ---
Test Date: 2025-04-19 10:01:26 Measurements Intervals [place] Rate: 84 P: 47 NE: 154 QRS: -14 QRSD: 81 T: -1 QT: 369 QTc: 438 Interpretive Statements SINUS RHYTHM DELAYED PRECORDIAL R/S TRANSITION BORDERLINE ST-T WAVE ABNORMALITY- INFERIOR LEADS BASELINE ARTIFACT- II, III, AVR, AVL, AVF BORDERLINE ECG Compared to ECG 04/19/2025 07:30:01 No significant changes Electronically Signed On 04-19-2025 10:14:38 [employer] OPER[employer] by Emir Kelsey D.O.
[2025-04-19 10:41] LABS: Troponin I 0.012 ng/mL (0.000-0.034)
== END 2025-04-19 11:08 | disposition home or self-care (01) ==
PROVIDERS: Emergency Provider Emergency Medicine; PCP Internal Medicine
DX: R07.89 Other chest pain (principal); I10 Essential (primary) hypertension; N30.10 Interstitial cystitis (chronic) without hematuria; F41.9 Anxiety disorder, unspecified; Z87.891 Personal history of nicotine dependence; Z79.899 Other long term (current) drug therapy; R94.31 Abnormal electrocardiogram [ECG] [EKG]
CPT/HCPCS: 36415; 71046; 80053; 83690; 84484; 85025; 85610; 85730; 93005; 99284; A9270